=== PATIENT | female | born 1950 | race Hispanic/Latino ===

== ENCOUNTER 2017-08-28 07:11 | Day surgery (SDC) | payer BC ==
[2017-08-28] MEDS ORDERED: NA CHLORIDE 0.9% 500 ML ONE (07:33)
[2017-08-28] MEDS ORDERED: CYCLOPENTOLATE 1% OPTH 2 ML ONE (07:34)
[2017-08-28] MEDS ORDERED: BUPIVACAINE 0.25% PF 10 ML VIAL ONE (07:34)
[2017-08-28] MEDS ORDERED: TETRACAINE HCL 0.5% 2ML OPTH ONE (07:34)
[2017-08-28] MEDS ORDERED: LIDOCAINE 2% MPF 5 ML VIAL ONE (07:34)
[2017-08-28] MEDS ORDERED: PHENYLEPHRINE 10% OPTH 5ML ONE (07:35)
[2017-08-28] MEDS ORDERED: LIDOCAINE HCL/PF 3.5% OPTH GEL ONE (07:36)
[2017-08-28] MEDS ORDERED: CYCLOPENTOLATE 1% OPTH 2 ML OPTH ONE ×2 (08:03→08:10)
[2017-08-28] MEDS ORDERED: PHENYLEPHRINE 10% OPTH 5ML OPTH ONE (08:03)
[2017-08-28] MEDS ORDERED: BALANCED SALT IRRIG PLAIN 500 ML BTL IRR ONE (08:14)
[2017-08-28] MEDS ORDERED: EPINEPHRINE/PF 1 MG/ML AMP ONE ×2 (08:14→09:34)
[2017-08-28] MEDS ORDERED: NS 0.9% VIAL 10 ML ONE (08:14)
[2017-08-28] MEDS ORDERED: DUOVISC 1 KIT OPTH ONE (08:14)
[2017-08-28] MEDS ORDERED: LIDOCAINE 1% MPF 2 ML AMPULE ONE (08:15)
[2017-08-28] MEDS ORDERED: MOXIFLOXACIN HCL 10 DROPS/ML **OR USE OPTH ONE (08:15)
[2017-08-28] MEDS ORDERED: BSS OPTHALMIC SOL 15 ML BOT OPTH ONE (08:15)
[2017-08-28] MEDS ORDERED: MIDAZOLAM HCL 2 MG/2 ML INJ ONE (08:45)
[2017-08-28] MEDS ORDERED: FENTANYL CITR 100 MCG/2 ML ONE (08:45)
--- NOTE | 2017-08-28 10:53 | P.BOP ---
Preoperative diagnosis: Nuclear sclerotic and posterior subcapsular cataract OS Postoperative diagnosis: Same Primary procedure: Phacoemulsification with IOL OS Estimated blood loss: None Anesthesia: Local (Topical with anesthesia for cataract surgery) Complications: None Implants: SN60WF +19.0 Transferred to: Other (Day surgery) Condition: Good
--- NOTE | 2017-08-28 21:43 | OP ---
Date of Procedure: 08/28/2017 Surgeon: Renay Singh MD Anesthesiologist: 1. Lauren Restrepo CRNA. 2. Chauncey Piedra CRNA. 3. Douglas Langston M.D. Preoperative Diagnosis: Nuclear sclerotic and posterior subcapsular cataract, OS (left eye). Operation Performed: Phacoemulsification with intraocular lens implant, OS, (left eye). Anesthesia: Per cataract surgery. Complications: None. Description Of Procedure: In the operating room the patient was prepped and draped in the usual ster ile fashion for ophthalmic surgery. A lid speculum was placed in the OS. Two paracentesis sites wer e made superiorly and inferiorly in the limbal cornea. Viscoat was placed in the anterior chamber an d a crescent blade was used to make a corneal groove and tunnel, and a keratome was used to enter the anterior chamber. Provisc was placed in the anterior chamber and a 360 degree capsulotomy was perfo rmed with a cystitome. The lens was hydrodissected with BSS and rotated freely. The lens was remove d with a stop and chop technique. A 6.09 phaco CDE was used to remove the lens. Residual cortex was removed with the irrigation and aspiration. Provisc was placed in the capsular bag. SN60WF +19.0 l ens was placed in the capsular bag without complications. Irrigation and aspiration was used to marck ve residual viscoelastic. The paracentesis sites were hydrated with BSS. The wound and paracentesis sites were inspected and found to be watertight. Vigamox 0.07 cc was placed intracamerally at the e nd of the procedure. The eye was irrigated with balanced salt solution. The eye was patched with a soft cotton patch and Alatorre metal shield. The patient was returned to day surgery in good condition. Comments: Akten was placed in the eye in the Day Surgery and irrigated out of the eye with BSS in th e OR. Preservative-free 1% lidocaine was placed in the anterior chamber. This was followed by 1:500 0 epinephrine. Both were placed prior to Viscoat. Residual PSC remained at the end of the procedure . Discharge Instructions: Ms. Reina is discharged to home in good condition and is to follow up nomi Singh in the morning. EROS/KELTON Voice ID: [id number] Report ID: [id number]
== END 2017-08-28 10:30 | disposition home or self-care (01) ==
LOC: OR 07:11
PROVIDERS: ATTEND Ophthalmology Retina Specialist
PROC: 08RK3JZ Replacement of Left Lens with Synthetic Substitute, Percutaneous Approach (ICD-10-PCS; principal; 2017-08-28 09:10)
DX: H25.12 Age-related nuclear cataract, left eye (principal); H25.042 Posterior subcapsular polar age-related cataract, left eye; H43.813 Vitreous degeneration, bilateral; H04.123 Dry eye syndrome of bilateral lacrimal glands; I10 Essential (primary) hypertension; E78.00 Pure hypercholesterolemia, unspecified; K21.9 Gastro-esophageal reflux disease without esophagitis; Z85.72 Personal history of non-Hodgkin lymphomas; Z83.518 Family history of other specified eye disorder; Z83.3 Family history of diabetes mellitus; Z80.9 Family history of malignant neoplasm, unspecified; Z82.49 Family history of ischemic heart disease and other diseases of the circulatory system
CPT/HCPCS: J0171; J2001; J2250; J3010; V2630

== ENCOUNTER 2019-05-27 20:45 | Emergency (ER) | payer BC ==
--- OUTSIDE RECORDS SUMMARY | 2019-05-27 20:48 | XMS REPORT ---
:1950 [facility] Address [address] [place] [address] Dr. Kenny. [address] [place] [id number] Care Team Providers Name Role Phone Unavailable Unavailable Unavailable Problems This patient has no known problems. Allergies, Adverse Reactions, Alerts This patient has no known allergies or adverse reactions. Medications This patient has no known medications.
--- OUTSIDE RECORDS SUMMARY | 2019-05-27 20:48 | XMS REPORT ---
:1950 Author Organization eClinicalWorks Care Team Providers Name Role Phone SwartzEleuterio Provider Role Unavailable Allergies, Adverse Reactions, Alerts Substance Reaction Event Type N.K.D.A. 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, esophageal dysfunction, sclerodactyly, telangiectasia) Assessment Pain, joint, knee, right M25.561 Active Problem Elevated blood pressure reading in I10 Active office with diagnosis of hypertension Problem Decreased hearing of left ear H91.92 Active Problem Leukopenia, unspecified type D72.819 Active Problem 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 Problem Osteoarthritis of both knees, M17.0 Active unspecified osteoarthritis type Problem 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 Active Problem Follicular lymphoma, unspecified C82.90 Active body region, unspecified follicular lymphoma type Problem 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 Problem HTN (hypertension) I10 Active Problem 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 Active Problem Dyspareunia in female N94.10 Active Problem CKD (chronic kidney disease), stage N18.3 Active III Problem Solitary pulmonary nodule R91.1 Active Problem Screening for osteoporosis Z13.820 Active Problem Gastroesophageal reflux disease K21.9 Active without esophagitis Problem 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 Problem Unsteady gait R26.81 Active Problem Renal insufficiency N28.9 Active Problem Hyperlipidemia E78.5 Active Problem Left foot pain M79.672 Active Medications Medication Code Code Instructions Start End Status Dosage System Date Date [place] 3 [place] 40519074614 340 MG Orally Active 1 capsule Once a day Vitamin E ND 65058260060 400 UNIT Active 1 capsule Orally Once a day Omeprazole [facility] 82318437381 40 MG Orally Active 1 capsule Once a day Rosuvastatin Calcium [facility] 42599416720 10 MG Orally Active 1 tablet Once a day Azelastine HCl [facility] [address]-31 Active not defined Diclofenac Sodium [facility] 36117952537 3 % May Active 2 gram Transdermal 10, application Twice a day 2019 to affected area Vitamin D [facility] 77176122017 2000 UNIT Active 1 tablet Orally Once a day Yuvafem [facility] [address]-27 Active not defined Carvedilol [facility] 88877779395 25 MG Orally Active 1 tablet twice a day Fluticasone [facility] [address]-98 Active not defined Propionate Nitrofurantoin [facility] [address]-82 Active not defined Monohyd Macro ProAir HFA [facility] 70603121040 108 (90 Base) Active 2 puffs as MCG/ACT needed Inhalation every 6 hrs Tizanidine HCl [facility] 54974154366 2 mg Orally at Active 1 tablet as bedtime needed Neurontin [facility] 35802442499 300 MG Orally Active 1 capsule Once a day before bedtime Fish Oil [facility] 14812832542 1200 MG Orally Active 1 capsule Once a day MethylPREDNISolone [facility] [address]-74 Active not defined Shingrix [facility] [address]-09 Active not defined Valtrex [facility] 38158827399 500 MG Orally Active 1 tablet Once a day Cozaar [facility] 55920621831 50 MG Active 1 EACH ONCE A DAY ORALLY Vitamin A [facility] 05489446345 8000 UNIT Active 3 capsules Orally Once a day Results No Known Results Summary Purpose eClinicalWorks Submission
--- OUTSIDE RECORDS SUMMARY | 2019-05-27 20:48 | XMS REPORT ---
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
--- OUTSIDE RECORDS SUMMARY | 2019-05-27 20:48 | XMS REPORT ---
[...] Active phenomenon, esophageal dysfunction, sclerodactyly, telangiectasia) Medications Medication Code Code Instructions Start End Date Status Dosage System Date Losartan [facility] 82836373129 50 MG Orally Active 1 tablet Potassium Once a day Results No Known Results Summary Purpose eClinicalWorks Submission
[2019-05-27] MEDS ORDERED: METHOCARBAMOL 1,000 MG/10 ML VIAL IV ONE ×2 (22:27→22:31)
[2019-05-27] MEDS ORDERED: dexAMETHasone 10 MG/ML VIAL ONE (22:27)
[2019-05-27] MEDS ORDERED: KETOROLAC 30 MG/ML INJ ONE (22:28)
[2019-05-27] MEDS ORDERED: NA CHLORIDE 0.9% 100 ML IV ONE (22:28)
[2019-05-27 22:45] LABS: Absolute Lymphocytes (CBC) 1.3 K/uL (0.7-4.9); Hematocrit 36.3 % (36.0-45.0); Lymphocytes % 28.1 % (15.3-44.8); MPV 8.4 fL (7.6-11.3); RBC Red Blood Cell Count 3.91 M/uL (3.86-4.86)
[2019-05-27 23:12] LABS: Urine Blood NEGATIVE (NEG); Urine Glucose NEGATIVE (NEG); Urine Protein NEGATIVE (NEG)
--- NOTE | 2019-05-28 00:14 | EDPHYS ---
Physician Documentation [facility] Name: Hattie Reina Age: 69 yrs Sex: Female : 1950 Arrival Date: 05/27/2019 Time: 20:50 Bed 20 Private MD: ED Physician Silvana Hoover HPI: 05/27 21:28 This 69 yrs old Female presents to ER via Ambulatory with complaints of Pain jr8 On Left Side. 21:28 Patient stated that she has been having lower back pain that is not going away despite jr8 recent pain injections and physical therapy. Stated that she has had MRI on back but does not have results as of yet. Came to ED tonight because the pain is spreading up her flank on both sides now. Severity of symptoms: At their worst the symptoms were moderate in the emergency department the symptoms are unchanged. The patient has not experienced similar symptoms in the past. The patient has been recently seen by a physician:. Historical: - Allergies: 21:16 No Known Allergies; wh - PMHx: 21:16 Hyperlipidemia; Hypertension; LYMPHOMA; shingles; wh - PSHx: 21:16 Tubal ligation; Carpal tunnel; wh - Immunization history:: Adult Immunizations up to date. - Social history:: Smoking status: Patient/guardian denies using tobacco. - Ebola Screening: : Patient negative for fever greater than or equal to 101.5 degrees Fahrenheit, and additional compatible Ebola Virus Disease symptoms Patient denies exposure to infectious person. ROS: 21:28 Eyes: Negative for injury, pain, redness, and discharge, ENT: Negative for injury, jr8 pain, and discharge, Neck: Negative for injury, pain, and swelling, Cardiovascular: Negative for chest pain, palpitations, and edema, Respiratory: Negative for shortness of breath, cough, wheezing, and pleuritic chest pain, Abdomen/GI: Negative for abdominal pain, nausea, vomiting, diarrhea, and constipation, MS/Extremity: Negative for injury and deformity, Skin: Negative for injury, rash, and discoloration, Neuro: Negative for headache, weakness, numbness, tingling, and seizure. 21:28 Back: Positive for pain at rest, pain with movement, of the low back area, left flank and right flank. Exam: 21:28 Eyes: Pupils equal round and reactive to light, extra-ocular motions intact. Lids and jr8 lashes normal. Conjunctiva and sclera are non-icteric and not injected. Cornea within normal limits. Periorbital areas with no swelling, redness, or edema. ENT: Nares patent. No nasal discharge, no septal abnormalities noted. Tympanic membranes are normal and external auditory canals are clear. Oropharynx with no redness, swelling, or masses, exudates, or evidence of obstruction, uvula midline. Mucous membranes moist. Neck: Trachea midline, no thyromegaly or masses palpated, and no cervical lymphadenopathy. Supple, full range of motion without nuchal rigidity, or vertebral point tenderness. No Meningismus. Cardiovascular: Regular rate and rhythm with a normal S1 and S2. No gallops, murmurs, or rubs. Normal PMI, no JVD. No pulse deficits. Respiratory: Lungs have equal breath sounds bilaterally, clear to auscultation and percussion. No rales, rhonchi or wheezes noted. No increased work of breathing, no retractions or nasal flaring. Abdomen/GI: Soft, non-tender, with normal bowel sounds. No distension or tympany. No guarding or rebound. No evidence of tenderness throughout. Skin: Warm, dry with normal turgor. Normal color with no rashes, no lesions, and no evidence of cellulitis. MS/ Extremity: Pulses equal, no cyanosis. Neurovascular intact. Full, normal range of motion. Neuro: Awake and alert, GCS 15, oriented to person, place, time, and situation. Cranial nerves II-XII grossly intact. Motor strength 5/5 in all extremities. Sensory grossly intact. Cerebellar exam normal. Normal gait. 21:28 Back: pain, that is mild, of the left low back and right low back, ROM is normal, normal spinal alignment noted, CVA tenderness, is absent, vertebral tenderness, is not appreciated, muscle spasm, is not present. Vital Signs: 21:15 BP 145 / 77; Pulse 66; Resp 18; Temp 97.8; Pulse Ox 99% ; Weight 86.18 kg; Height 5 ft. wh 4 in. (162.56 cm); Pain 4/10; 22:42 BP 149 / 68; Pulse 63; Resp 18; Pulse Ox 99% on R/A; wh 23:48 BP 136 / 53; Pulse 63; Resp 18; Pulse Ox 97% on R/A; 21:15 Body Mass Index 32.61 (86.18 kg, 162.56 cm) MDM: 21:27 Patient medically screened. [facility] 05/28 00:10 Data reviewed: vital signs, nurses notes, lab test result(s), radiologic studies, CT [facility] scan. Data interpreted: Pulse oximetry: on room air is 97 %. Interpretation: normal. Counseling: I had a detailed discussion with the patient and/or guardian regarding: the historical points, exam findings, and any diagnostic results supporting the discharge/admit diagnosis, lab results, radiology results, the need for outpatient follow up, an OB/Gyne specialist, a orthopedic surgeon, to return to the emergency department if symptoms worsen or persist or if there are any questions or concerns that arise at home. ED course: Patient is feeling better. CT without surgically emergent findings. Does show possibility of thrombus in left ovarian vein. Patient is without any abdominal pain or tenderness. I think this is subsequent finding at this time but I brought it to patients attention and that she needs to f/u with her picture painter regardless. Otherwise will treat her a musculoskeletal pain at this time. Patient is good with this and will follow up. 05/27 21:28 Order name: CBC with Diff; Complete Time: 22:51 [facility] 05/27 21:28 Order name: Basic Metabolic Panel; Complete Time: 22:51 [facility] 05/27 21:28 Order name: CT Abd/Pelvis - IV Contrast Only [facility] 05/27 22:28 Order name: Urine Dipstick--Ancillary (enter results); Complete Time: 23:24 [facility] 05/27 21:28 Order name: Urine Dipstick-Ancillary (obtain specimen); Complete Time: 22:30 [facility] Administered Medications: 05/27 22:33 Drug: TORadol - Ketorolac 15 mg Route: IVP; Site: left upper arm; 05/28 00:36 Follow up: Response: No adverse reaction; Pain is decreased 05/27 22:35 Drug: Decadron - Dexamethasone 10 mg Route: IVP; Site: left upper arm; 05/28 00:36 Follow up: Response: No adverse reaction 05/27 22:41 Drug: Robaxin 1 grams Route: IVPB; Infused Over: 1 hrs; Site: left upper arm; 05/28 00:36 Follow up: Response: No adverse reaction; IV Status: Completed infusion Disposition: 04:32 Co-signature as Attending Physician, Silvana Hoover MD. ma2 Disposition: 05/28/19 00:13 Discharged to Home. Impression: Low back pain, Muscle spasm of back. - Condition is Stable. - Discharge Instructions: Back Pain, Adult, Musculoskeletal Pain, Back Exercises, Rhxx-bs-Kyci, Heat Therapy. - Prescriptions for meloxicam 15 mg Oral tablet - take 1 tablet by ORAL route once daily As needed; 20 tablet. Zanaflex 4 mg Oral Tablet - take 1 tablet by ORAL route every 8 hours As needed; 20 tablet. Medrol (Scott) 4 mg Oral Tablets, Dose Pack - take 1 tablet by ORAL route as directed - follow package instructions; 1 packet. - Medication Reconciliation Form, Thank You Letter, Antibiotic Education, Prescription Opioid Use form. - Follow up: Private Physician; When: 5 - 6 days; Reason: Recheck today's complaints, Continuance of care, Re-evaluation by your physician. - Problem is new. - Symptoms have improved. Signatures: Dispatcher [employer] EDMS Kelby Smith PA PA jr8 Barbara Cruz Sneha, MD FARIDEH Pina ma2 Corrections: (The following items were deleted from the chart) 00:36 00:13 05/28/2019 00:13 Discharged to Home. Impression: Low back pain; Muscle spasm of wh back. Condition is Stable. Forms are Medication Reconciliation Form, Thank You Letter, Antibiotic Education, Prescription Opioid Use. Follow up: Private Physician; When: 5 - 6 days; Reason: Recheck today's complaints, Continuance of care, Re-evaluation by your physician. Problem is new. Symptoms have improved. jr8
--- NOTE | 2019-05-28 00:14 | ER ---
Nurse's Notes [facility] Name: Hattie Reina Age: 69 yrs Sex: Female : 1950 Arrival Date: 05/27/2019 Time: 20:50 Bed 20 Private MD: Diagnosis: Low back pain;Muscle spasm of back Presentation: 05/27 21:14 Presenting complaint: Patient states: C/O lower back pain that started for a couple of wh months ago now getting worse and goes to her left leg. Transition of care: patient was not received from another setting of care. Onset of symptoms was May 27, 2019. Risk Assessment: Do you want to hurt yourself or someone else? Patient reports no desire to harm self or others. Initial Sepsis Screen: Does the patient meet any 2 criteria? No. Patient's initial sepsis screen is negative. Does the patient have a suspected source of infection? No. Patient's initial sepsis screen is negative. Care prior to arrival: None. 21:14 Method Of Arrival: Ambulatory 21:35 Acuity: TAE 3 bb Triage Assessment: 21:17 General: Appears. Historical: - Allergies: 21:16 No Known Allergies; - PMHx: 21:16 Hyperlipidemia; Hypertension; LYMPHOMA; shingles; - PSHx: 21:16 Tubal ligation; Carpal tunnel; - Immunization history:: Adult Immunizations up to date. - Social history:: Smoking status: Patient/guardian denies using tobacco. - Ebola Screening: : Patient negative for fever greater than or equal to 101.5 degrees Fahrenheit, and additional compatible Ebola Virus Disease symptoms Patient denies exposure to infectious person. Screenin:16 Abuse screen: Denies threats or abuse. Denies injuries from another. Nutritional screening: No deficits noted. Tuberculosis screening: No symptoms or risk factors identified. Fall Risk None identified. Assessment: 21:15 General: Appears in no apparent distress. Behavior is calm, cooperative, appropriate for age. Pain: Complains of pain in low back area Pain radiates to left leg Pain currently is 4 out of 10 on a pain scale. Quality of pain is described as sharp, Pain began couple of months Is intermittent. Neuro: Level of Consciousness is awake, alert, obeys commands. Cardiovascular: Heart tones S1 S2. Respiratory: Airway is patent Respiratory effort is even, unlabored, Respiratory pattern is regular, symmetrical, Breath sounds are clear bilaterally. GI: Abdomen is flat, non-distended. : No signs and/or symptoms were reported regarding the genitourinary system. EENT: No signs and/or symptoms were reported regarding the EENT system. Derm: Skin is intact, is healthy with good turgor, Skin is pink, warm \T\ dry. normal. Musculoskeletal: Circulation, motion, and sensation intact. 22:17 Reassessment: Patient appears in no apparent distress at this time. No changes from previously documented assessment. Patient and/or family updated on plan of care and expected duration. Pain level reassessed. Patient is alert, oriented x 3, equal unlabored respirations, skin warm/dry/pink. CN at bedside attempting IV access via LUCHO. 23:48 Reassessment: Patient appears in no apparent distress at this time. No changes from previously documented assessment. Patient and/or family updated on plan of care and expected duration. Pain level reassessed. Patient is alert, oriented x 3, equal unlabored respirations, skin warm/dry/pink. Vital Signs: 21:15 BP 145 / 77; Pulse 66; Resp 18; Temp 97.8; Pulse Ox 99% ; Weight 86.18 kg; Height 5 ft. 4 in. (162.56 cm); Pain 4/10; 22:42 BP 149 / 68; Pulse 63; Resp 18; Pulse Ox 99% on R/A; wh 23:48 BP 136 / 53; Pulse 63; Resp 18; Pulse Ox 97% on R/A; wh 21:15 Body Mass Index 32.61 (86.18 kg, 162.56 cm) ED Course: 20:50 Patient arrived in ED. cl3 20:52 Barbara Cruz is Primary Nurse. wh 20:54 Kelby Smith PA is PHCP. jr8 20:54 Silvana Hoover MD is Attending Physician. jr8 21:15 Triage completed. 21:15 Arm band placed on right wrist. 21:17 Patient has correct armband on for positive identification. Bed in low position. Call light in reach. Side rails up X 1. Pulse ox on. NIBP on. 22:00 Missed attempt(s): 22 gauge in right antecubital area. Bleeding controlled, band aid wh applied, catheter tip intact. 22:28 Initial lab(s) drawn, by me, sent to lab. Accessed peripheral vein via ultrasound, bb utilizing dynamic ultrasound technique using per hospital protocol. 18 [employer] [place] Pro 10 cm. 23:28 CT Abd/Pelvis - IV Contrast Only In Process Unspecified. EDMS 05/28 00:35 No provider procedures requiring assistance completed. IV discontinued, intact, bleeding controlled, No redness/swelling at site. Administered Medications: 05/27 22:33 Drug: TORadol - Ketorolac 15 mg Route: IVP; Site: left upper arm; 05/28 00:36 Follow up: Response: No adverse reaction; Pain is decreased 05/27 22:35 Drug: Decadron - Dexamethasone 10 mg Route: IVP; Site: left upper arm; 05/28 00:36 Follow up: Response: No adverse reaction 05/27 22:41 Drug: Robaxin 1 grams Route: IVPB; Infused Over: 1 hrs; Site: left upper arm; 05/28 00:36 Follow up: Response: No adverse reaction; IV Status: Completed infusion Outcome: 00:13 Discharge ordered by MD. jj 00:35 Discharged to home ambulatory, with family. 00:35 Condition: stable 00:35 Discharge instructions given to patient, family, Instructed on discharge instructions, follow up and referral plans. medication usage, POC Demonstrated understanding of instructions, follow-up care, medications, POC Prescriptions given X 3. 00:36 Patient left the ED. Signatures: Dispatcher [employer] EDVA Faby Parker RN RN Kelby Flanagan PA PA jr8 Barbara Cruz Naveen Moreno cl3 Corrections: (The following items were deleted from the chart) 05/27 21:35 21:14 Acuity: TAE 4 honey
[2019-05-28 01:11] VITALS: TEMP 97.8
[2019-05-28 01:14] VITALS: BP 136/53; O2SAT 97
--- NOTE | 2019-05-28 09:52 | RAD REPORT ---
EXAM DESCRIPTION: CT - Abdomen Pelvis W Contrast - 05/28/2019 6:03 am CLINICAL HISTORY: Lower back pain. COMPARISON: None. TECHNIQUE: CT scan of the abdomen and pelvis was performed with IV contrast. This exam was performed according to our departmental dose-optimization program, which includes automated exposure control, adjustment of the mA and/or kV according to patient size and/or use of iterative reconstruction techn ique. FINDINGS: The lung bases are clear. No pleural or pericardial effusions. The gallbladder is contract ed, limiting evaluation. The liver, spleen, pancreas, adrenal glands, kidneys, and pelvic organs are grossly unremarkable. No hydronephrosis or urinary stones are seen. There is a thrombosed vessel with inflammatory stranding which appears to extend to the left renal vein, suggestive of ovarian vein th rombosis. No small bowel obstruction. The appendix is normal. No evidence of acute diverticulitis. No adenopath y, free fluid, or free air is identified. The aorta is normal caliber and contains atherosclerotic ca lcifications. No acute bony findings. 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 Electronically signed by: Luis Alfredo Hahn MD 05/27/2019 11:47 PM PHLEBOTOMY MANAGER Due to temporary technical issues with the PACS/Fluency reporting system, reports are being signed by the in house radiologist as a courtesy to ensure prompt reporting. The interpreting radiologist is f ully responsible for the content of the report.
== END 2019-05-28 00:36 | disposition home or self-care (01) ==
LOC: ER 20:45
DX: M62.830 Muscle spasm of back (principal); I10 Essential (primary) hypertension
CPT/HCPCS: 96365; 85025; 80048; 36415; 81003; 74177; 96375; 99284; 96366; Q9967; J1100; J2800

== ENCOUNTER 2019-07-03 06:52 | Day surgery (SDC) | payer BC ==
--- OUTSIDE RECORDS SUMMARY | 2019-07-03 06:54 | XMS REPORT ---
[...] Start End Status Dosage System Date Date [place] 3 [place] 24142488401 340 MG Orally Active 1 capsule Once a day Vitamin E ND 14686686761 400 UNIT Active 1 capsule Orally Once a day Omeprazole [facility] 26229176524 40 MG Orally Active 1 capsule Once a day Rosuvastatin Calcium [facility] 13295964077 10 MG Orally Active 1 tablet Once a day Azelastine HCl [facility] [address]-16 Active not defined Diclofenac Sodium [facility] 47145773748 3 % May Active 2 gram Transdermal 10, application Twice a day 2019 to affected area Vitamin D [facility] 73320664735 2000 UNIT Active 1 tablet Orally Once a day Yuvafem [facility] [address]-44 Active not defined Carvedilol [facility] 33693428039 25 MG Orally Active 1 tablet twice a day Fluticasone [facility] [address]-77 Active not defined Propionate Nitrofurantoin [facility] [address]-41 Active not defined Monohyd Macro ProAir HFA [facility] 86497401295 108 (90 Base) Active 2 puffs as MCG/ACT needed Inhalation every 6 hrs Tizanidine HCl [facility] 08582351120 2 mg Orally at Active 1 tablet as bedtime needed Neurontin [facility] 65807332910 300 MG Orally Active 1 capsule Once a day before bedtime Fish Oil [facility] 09304706791 1200 MG Orally Active 1 capsule Once a day MethylPREDNISolone [facility] [address]-46 Active not defined Shingrix [facility] [address]-19 Active not defined Valtrex [facility] 91104762835 500 MG Orally Active 1 tablet Once a day Cozaar [facility] 73258474994 50 MG Active 1 EACH ONCE A DAY ORALLY Vitamin A [facility] 45858760147 8000 UNIT Active 3 capsules Orally Once a day Results No Known Results Summary Purpose eClinicalWorks Submission
--- OUTSIDE RECORDS SUMMARY | 2019-07-03 06:54 | XMS REPORT ---
:1950 [facility] Address [address] [place] [address] Dr. Kenny. [address] [place] [id number] Care Team Providers Name Role Phone Unavailable Unavailable Unavailable Problems This patient has no known problems. Allergies, Adverse Reactions, Alerts This patient has no known allergies or adverse reactions. Medications This patient has no known medications.
--- OUTSIDE RECORDS SUMMARY | 2019-07-03 06:54 | XMS REPORT ---
[...] End Date Status Dosage System Date Losartan [facility] [place] 24153552227 50 MG Orally Active 1 tablet Potassium Once a day Results No Known Results Summary Purpose eClinicalWorks Submission
[2019-07-03] MEDS ORDERED: Ringers Lactate 1,000 ML IV ONE (07:32)
[2019-07-03] MEDS ORDERED: FENTANYL CITR 100 MCG/2 ML ONE (08:14)
[2019-07-03] MEDS ORDERED: LIDOCAINE 2% MPF 5 ML VIAL ONE (08:15)
[2019-07-03] MEDS ORDERED: propofoL 200 MG/20 ML VIAL IV ONE (08:15)
[2019-07-03] MEDS ORDERED: MIDAZOLAM HCL 2 MG/2 ML INJ ONE (08:15)
[2019-07-03] MEDS ORDERED: NA CHLORIDE 0.9% 1,000 ML ONE (09:05)
[2019-07-03] MEDS: LIDOCAINE 1% W/EPI 1:100,000 MDV 20 ML VIAL ONE ×2 (09:20→09:37)
[2019-07-03] MEDS ORDERED: KETOROLAC 30 MG/ML INJ ONE (09:51)
[2019-07-03 10:14] VITALS: TEMP 97
[2019-07-03 10:15] VITALS: BP 117/58; O2SAT 97
--- NOTE | 2019-07-03 20:43 | OP ---
Date of Procedure: 07/03/2019 Surgeon: Claudia Haley MD Construction Analyst: None. Preoperative Diagnoses: Endometrial hyperplasia and thickened endometrium. Postoperative Diagnoses: Endometrial hyperplasia and thickened endometrium. Procedure Performed: Hysteroscopy, D and C. Estimated Blood Loss: Minimal. Anesthesia: MAC plus paracervical block. Specimens: Endometrial curettings. Complications: No complications. Drains: No drains. Condition: Stable. Indications For Procedure: The patient is a 69-year-old lady with thick pelvic pain. Transvaginal u ltrasound performed. Endometrium appeared to be thickened. Discussed about possibility of endometri al hyperplasia or polyp, so cavity visualization and sampling was recommended. She was consented and brought to the OR. Description Of Procedure: After informed consent was verified, she was taken back to OR, placed in a supine fashion. General anesthesia given, placed in a dorsal lithotomy position. Abdomen, vulva, v agina and perineum prepped and draped in a sterile fashion. Speculum placed to expose the cervix, in jected with 1% lidocaine mixed with 1:100,000 epinephrine 8 cc at 12 o'clock and 4 and 8 o'clock posi tions of the cervicovaginal junction. Diagnostic SlimLine hysteroscope was used to enter the cervica l canal and traversed under direct visualization to get into the uterine cavity. Thickened endometri um in the anterior and lateral wall that mostly unremarkable, no irregular surface. Scope removed. Endometrial curettings performed and they were scant, but sent out for permanent pathology. Instrume nts removed. Instrument, needle and sponge counts were done and were correct at the end of the case. The patient tolerated the procedure well. She was recovered from anesthesia in the OR and taken to PACU in stable condition. She will follow up with me in 1 week. JOANNA/KELTON Voice ID: [id number] Report ID: [id number]
== END 2019-07-03 10:48 | disposition home or self-care (01) ==
LOC: OR 06:52
PROVIDERS: ATTEND Obstetrics & Gynecology
PROC: 0UJD8ZZ Inspection of Uterus and Cervix, Via Natural or Artificial Opening Endoscopic (ICD-10-PCS; 2019-07-03)
PROC: 0UDB7ZX Extraction of Endometrium, Via Natural or Artificial Opening, Diagnostic (ICD-10-PCS; principal; 2019-07-03 08:30)
DX: N85.00 Endometrial hyperplasia, unspecified (principal); N94.11 Superficial (introital) dyspareunia; R93.89 Abnormal findings on diagnostic imaging of other specified body structures; R10.32 Left lower quadrant pain; M54.5 Low back pain; I10 Essential (primary) hypertension; E78.5 Hyperlipidemia, unspecified; Z85.72 Personal history of non-Hodgkin lymphomas; Z86.718 Personal history of other venous thrombosis and embolism; Z80.3 Family history of malignant neoplasm of breast; Z83.3 Family history of diabetes mellitus
CPT/HCPCS: 88305; 58558; J2704; J2250; J3010; J7120; J7030

== ENCOUNTER 2020-01-14 06:05 | Day surgery (SDC) | payer BC ==
[2020-01-13 10:27] LABS: Urine Appearance CLEAR; Urine Bilirubin NEGATIVE (NEG); Urine Blood NEGATIVE (NEG); Urine Color YELLOW; Urine Glucose NEGATIVE (NEG); Urine Protein NEGATIVE (NEG); Urine Urobilinogen 0.2 mg/dL (0.2-1.0); Urine pH 5.5 (5.0-7.0)
[2020-01-13 10:46] LABS: Urine Microscopic Reflex ORDER UMIC
[2020-01-13 10:49] LABS: Urine Bacteria <20 /HPF (<20); Urine Culture Reflex Order NOT NEEDED; Urine RBC NONE SEEN /HPF (NONE SEEN)
[2020-01-13 10:50] LABS: Urine Mucus MOD /HPF (NONE SEEN)
[2020-01-13 11:50] LABS: Basophils % 0.9 % (0-1.3); Hematocrit 36.3 % (36.0-45.0); Lymphocytes % 20.6 % (15.3-44.8); MPV 8.6 fL (7.6-11.3); RBC Red Blood Cell Count 3.88 M/uL (3.86-4.86)
--- OUTSIDE RECORDS SUMMARY | 2020-01-14 06:13 | XMS REPORT | Continuity of Care Document ---
:1950 Author Organization [facility] Care Team Providers Name Role Phone [employer] Unavailable Un available Problems Problem Status Onset Classification Date Comments Sourc e Date Reported Chest pain Resolved Problem 01/04/2020 [facility] (finding) Neuro Hyperlipidemia Active Problem 01/04/2020 [facility] (disorder) Neuro Hypertensive Active Problem 01/04/2020 [facility] disorder, Neuro systemic arterial (disorder) Lumbar Active Problem 01/04/2020 [facility] radiculopathy Neuro (disorder) Postherpetic Active Problem 01/04/2020 [facility] neuralgia Neuro (disorder) Simple obesity Active Problem 01/04/2020 [facility] (disorder) Neuro Anti-nuclear Active Problem 01/04/2020 [facility] factor positive Neur o (finding) 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 Neuro (disorder) Abnormal Active Diagnosis 10/02/[facility] [place] finding in serum, unspecified Essential Active Problem 10/02/2019 [facility] [place] hypertension 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 Renal Active Diagnosis 10/02/2019 [facility] insufficiency [facility] [place] Osteoarthritis Active Diagnosis 10/02/2019 [facility] [place] Systemic Active Problem 10/02/2019 [facility] involvement of [facility] connective tissue, unspecified Other specified Active Problem 10/02/2019 [facility] disorders [facility] [place] involving the immune mechanism Abnormal finding Active Problem 10/02/2019 [facility] of blood [facility] [place] chemistry, unspecified Lumbar Active Diagnosis 10/02/2019 [facility] radiculopathy [facility] [place] Medications Medication Details Route Status Patient Ordering Order Source Instructions Provider Date gabapentin 300 300 mg = 1 Active [facility] r MG Oral Capsule cap, PO, 020 Neuro Bedtime, # 90 cap, 2 Refill(s), Pharmacy: [id number], 162.56, cm, 01/01/20 15:18:00 CDT, Height, 82.273, kg, 01/01/20 15:18:00 CDT, Weight gabapentin 300 300 mg = 1 Active [facility] r MG Oral Capsule cap, PO, 018 Neuro Bedtime, # 90 cap, 2 Refill(s), Pharmacy: [facility] [id number] Omeprazole 40 mg, PO, Active [facility] Daily, 0 018 Neuro Refill(s) rosuvastatin 10 mg, PO, Active [facility] Daily, 0 018 Neuro Refill(s) Losartan 50 mg, PO, Active [facility] Daily, 0 018 Neuro Refill(s) valacyclovir 500 mg, PO, Active [facility] Daily, # 21 018 Neuro tab, 0 Refill(s) carvedilol 25 mg, PO, Active [facility] Daily, 0 018 Neuro Refill(s) Gabapentin 1 capsule Orally Active 300 MG Orally [facility] Once a day [facility] [place] Fluticasone 1 spray in Nasally Active 50 MCG/ACT [facility] Propionate each nostril Nasally Once a o f Rosuvastatin 1 tablet Orally Active 10 MG Orally [facility] Calcium Once a day of Valacyclovir 1 tablet Orally Active 500 MG Orally [facility] HCl Once a day [facility] [place] Vitamin D3 1 capsule Orally Active 2000 UNIT [facility] Orally Once a of day Vitamin C 1 tablet Orally Active 1000 MG Orally [facility] Once a day [facility] [place] Calcium not defined NA Active [facility] [place] Azelastine HCl 1 puff in Nasally Active 137 MCG/SPRAY Vo [facility] each nostril Nasally Twice of a day Carvedilol 2 tablets Orally Active 12.5 MG Orally [facility] twice a day [facility] [place] Losartan 1 tablet Orally Active 50 MG Orally [facility] Potassium Once a day [facility] [place] Yuvafem 1 tablet Vaginal Active 10 MCG Vaginal Vo [facility] r Two times a of Week Super B Complex not defined NA Active [facility] [place] Vitamin E 1 capsule Orally Active 400 UNIT [facility] Orally Once a of day Fish Oil not defined NA Active [facility] [place] Calcium not defined NA Active [facility] [place] Gabapentin 1 capsule Orally Active 300 MG Orally [facility] Once a day [facility] [place] Carvedilol 2 tablets Orally Active 12.5 MG Orally [facility] twice a day [facility] [place] Allergies, Adverse Reactions, Alerts Substance Category Reaction Severity Reaction Status Date Comments S ource type Reported N.K.D.A. Adverse Info Not Adverse [facility] m Reaction Available Reaction [facility] [place] No Known Assertion Drug Misch er Medication allergy Neuro Allergies Immunizations No Data Provided for This Section Results No Data Provided for This Section Pathology Reports No Data Provided for This Section Diagnostic Reports No Data Provided for This Section Consultation Notes No Data Provided for This Section Discharge Summaries No Data Provided for This Section History and Physicals No Data Provided for This Section Vital Signs Vital Sign Value Date Comments Source Systolic (mm Hg) 164 01/01/2020 [facility] Diastolic (mm Hg) 88 01/01/2020 [facility] Ne uro Heart Rate 68 01/01/2020 [facility] Neuro Respitory Rate 16 01/01/2020 [facility] Neuro Height 162.56 cm 01/01/2020 [facility] Neuro Weight 82.273 01/01/2020 [facility] BMI Calculated 31.13 01/01/2020 [facility] Neuro Systolic (mm Hg) 133 10/16/2019 [facility] Diastolic (mm Hg) 87 10/16/2019 [facility] Ne uro Heart Rate 75 10/16/2019 [facility] Neuro Respitory Rate 16 10/16/2019 [facility] Neuro Height 162.56 cm 10/16/2019 [facility] Neuro Weight 85.909 10/16/2019 [facility] Neuro BMI Calculated 32.51 10/16/2019 [facility] Neuro Systolic (mm Hg) 130 09/17/2019 [facility] Axel ro Diastolic (mm Hg) 78 09/17/2019 [facility] Ne uro Heart Rate 70 09/17/2019 [facility] Neuro Respitory Rate 16 09/17/2019 [facility] Neuro Height 162.56 cm 09/17/2019 [facility] Neuro Weight 86.818 09/17/2019 [facility] Neuro BMI Calculated 32.85 09/17/2019 [facility] Neuro Weight 191 01/29/2019 [facility] Height 64.0 01/29/2019 [facility] Heart Rate 67 01/29/2019 [facility] Diastolic (mm Hg) 84 01/29/2019 [facility] Systolic (mm Hg) 146 01/29/2019 [facility] [place] Systolic (mm Hg) 135 [facility] Di[facility] (mm Hg) 74 01/01/2019 [facility] Heart Rate 67 01/01/2019 [facility] Neuro Respitory Rate 16 01/01/2019 [facility] Neuro Height 162.56 cm 01/01/2019 [facility] Neuro Weight 87.727 01/01/2019 [facility] Neuro BMI Calculated 33.2 01/01/2019 [facility] Neuro Heart Rate 66 06/05/2018 [facility] Neuro Respitory Rate 16 06/05/2018 [facility] Neuro Systolic (mm Hg) 133 06/05/2018 [facility] Axel ro Diastolic (mm Hg) 84 06/05/2018 [facility] Ne uro Height 162.56 cm 06/05/2018 [facility] Neuro Weight 85.455 06/05/2018 [facility] Neuro BMI Calculated 32.34 06/05/2018 [facility] Neuro Height 165.1 cm 04/24/2018 [facility] Neuro BMI Calculated 31.35 04/24/2018 [facility] Neuro Weight 85.455 04/24/2018 [facility] Neuro Heart Rate 67 04/24/2018 [facility] Neuro Systolic (mm Hg) 161 04/24/2018 [facility] ro Diastolic (mm Hg) 73 04/24/2018 [facility] Ne uro Encounters Location Location Encounter Encounter Reason Attending ADM IN Stat us Source Details Type Number For Provider Date Date Visit Outpatient [id number] KAYLENE 04/24 [facility] Outpatient [id number] Kaylene 04/24 04/25 [facility] Neurology [facility] /2017 [facility] [place] MNA Outside [id number] 04/30 05/02 [facility] Neurology [facility] /2017 Neuro [place] Records Outpatient [id number] KAYLENE 06/05 Active [facility] [place] M[facility] Outpatient [id number] Kaylene 06/05 06/06 [facility] Neurology [facility] /2018 [facility] [place] Outpatient [id number] Kaylene 01/01 [facility] [place] MNA Outpatient [id number] Kaylene 01/01 01/02 [facility] Neurology [facility] /2018 Neuro [place] Outpatient [id number] Kaylene 09/16 Active [facility] MNA Outpatient [id number] Kaylene 09/16 09/17 [facility] Neurology [facility] /2019 Neuro [place] Outpatient [id number] Kaylene 10/07 [facility]2020 [facility] MNA Ambulatory [id number] Kaylene 10/07 10/07 [facility] /2019 [facility] [place] Outpatient [id number] Kaylene 10/15 [facility]2020 [facility] Outpatient [id number] Kaylene 10/15 10/16 [facility] /2019 [facility] [place] MNA Outside [id number] 11/04 11/06 [facility] /2019 [facility] [place] Records Outpatient [id number] Kaylene 11/26 [facility]2019 [facility] Outpatient [id number] Kaylene 11/26 [facility]2019 [facility] Ambulatory [id number] Kaylene 11/26 11/26 [facility] [place] /2019 [facility] [place] MNA Ambulatory [id number] Kaylene 11/26 11/26 [facility] [place] /2019 [facility] [place] Outpatient [id number] Kaylene 12/31 [facility]2019 [facility] Outpatient [id number] Kaylene 12/31 01/01 [facility] /2019 [facility] [place] Outpatient [id number] Kaylene 09/30 [facility] [place] Procedures Procedure Code Date Perfomer Comments Source Cataract surgery [id number] [facility] Neuro Assessment and Plan No Data Provided for This Section Plan of Care No Data Provided for This Section Social History Social History Date Source Social History TypeResponse 01/01/2020 [facility] Smoking Status Never smoker; Type: Cigarettes; Exposure to Tobacco Smoke None; Cigarette Smoking Last 365 Days No; Reg Smoking Cessation Counseling No entered on: 01/01/20 Family History No Data Provided for This Section Advance Directives No Data Provided for This Section Functional Status No Data Provided for This Section
--- OUTSIDE RECORDS SUMMARY | 2020-01-14 06:14 | XMS REPORT | Summary of Care ---
:1950 Author Organization [facility] [place] Address [address] [place] [address]- phone Encounter HQ Encntr_alias(FIN) [id number] Date(s): 11/27/19 - 11/27/19 [facility] [address] [place] [address]- [phone] Attending Physician: Brennan Kim MD Referring Physician: Brennan Kim MD Vital Signs No data available for this section Problem List Condition Effective Dates Status Health Status Informant Chest pain(Confirmed) Resolved Hyperlipidemia(Confirmed) Active Hypertension(Confirmed) Active Lumbar radiculopathy(Confirmed) Active Post herpetic neuralgia(Confirmed) Active Simple obesity(Confirmed) Active Allergies, Adverse Reactions, Alerts No Known Medication Allergies Medications No data available for this section Results No data available for this section Immunizations No data available for this section Procedures Procedure Date Related Diagnosis Body Site Status Cataract surgery Completed Social History Social History Type Response Smoking Status Never smoker; Type: Cigarett es; Exposure to Tobacco Smoke None; Cigarette Smoking Last 365 Days No; Reg Smoking Cessation Counseling No entered on: 10/16/19 Assessment and Plan No data available for this section
--- OUTSIDE RECORDS SUMMARY | 2020-01-14 06:14 | XMS REPORT | Summary of Care ---
:1950 Author Organization [facility] Neurology [place] Address [address] [place] [address]- phone Encounter HQ Encntr_alias(FIN) [id number] Date(s): 11/27/19 - 11/27/19 [facility] [address] [place] [address]- [phone] Attending Physician: Brennan Kim MD Referring Physician: [...]
--- OUTSIDE RECORDS SUMMARY | 2020-01-14 06:14 | XMS REPORT | Summary of Care ---
:1950 Author Organization [facility] Neu[facility] [place] Address [address] [place] [address]- Encounter HQ Gary_letty(FIN) [id number] Date(s): 01/01/20 - 01/01/20 [facility] [address] [place] [address]- [phone] Discharge Disposition: Home or Self Care Attending Physician: Brennan Kim MD Referring Physician: Brennan Kim MD Vital Signs Most recent to oldest [Reference Range]: 1 Height 162.56 cm (01/01/20 3:18 PM) Blood Pressure [90-140/60-90 mmHg] 164/88 mmHg *HI* (01/01/20 3:18 PM) Respiratory Rate [14-20 BRMIN] 16 BRMIN (01/01/20 3:18 PM) Peripheral Pulse Rate [60-100 bpm] 68 bpm (01/01/20 3:18 PM) Weight 82.273 kg (01/01/20 3:18 PM) Body Mass Index 31.13 m2 (01/01/20 3:18 PM) Problem List Condition Effective Dates Status Health Status Informant COLLETTE positive(Confirmed) Active Chest pain(Confirmed) Resolved Hyperlipidemia(Confirmed) Active Hypertension(Confirmed) Active Lumbar radiculopathy(Confirmed) Active Post herpetic neuralgia(Confirmed) Active Simple obesity(Confirmed) Active Scleroderma(Confirmed) Active Allergies, Adverse Reactions, Alerts No Known Medication Allergies Medications gabapentin 300 mg oral capsule 300 mg = 1 cap, PO, Bedtime, # 90 cap, 2 Refill(s), Pharmacy: [facility] #[id number], 162.56, cm, 01/01/20 15:18:00 CDT, Height, 82.273, kg, 01/01/20 15:18:00 CDT, Weight Start Date: 01/01/20 Stop Date: 09/27/20 Status: Ordered Results No data available for this section Immunizations No data available for this section Procedures Procedure Date Related Diagnosis Body Site Status Cataract surgery Completed Social History Social History Type Response Smoking Status Never smoker; Type: Cigarett es; Exposure to Tobacco Smoke None; Cigarette Smoking Last 365 Days No; Reg Smoking Cessation Counseling No entered on: 01/01/20 Assessment and Plan No data available for this section
--- OUTSIDE RECORDS SUMMARY | 2020-01-14 06:15 | XMS REPORT ---
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 Problem Gastroesophageal reflux disease K21.9 Active without esophagitis Problem 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 Problem 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 Active Problem Follicular lymphoma, unspecified C82.90 Active body region, unspecified follicular lymphoma type Problem Elevated triglycerides with high E78.2 Active cholesterol Problem CKD (chronic kidney disease), stage N18.3 Active III Problem HTN (hypertension) I10 Active Problem Osteoarthritis of both knees, M17.0 Active unspecified osteoarthritis type Problem Dyspareunia in female N94.10 Active Problem Screening for osteoporosis Z13.820 A ctive Problem Hyperlipidemia E78.5 Active Problem 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
--- OUTSIDE RECORDS SUMMARY | 2020-01-14 06:15 | XMS REPORT ---
:1950 Author Organization [employer] Care Team Providers Name Role Phone Trammell, Na Provider Role Unavailable Allergies No Known Allergies Problems Problem Type Condition Code Onset Dates Condition Statu s Assessment CKD (chronic kidney disease), stage N18.3 Active III Assessment Follicular lymphoma, unspecified C82.90 Active body region, unspecified follicular lymphoma type Assessment HTN (hypertension) I10 Active Problem Elevated blood pressure reading in I10 Active office with diagnosis of hypertension Assessment Hyperlipidemia E78.5 Active Problem Renal insufficiency N28.9 Active Problem Leukopenia, unspecified type D72.819 Active Problem 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 Active Problem Decreased hearing of left ear H91.92 Active Problem 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
--- OUTSIDE RECORDS SUMMARY | 2020-01-14 06:15 | XMS REPORT | Continuity of Care Document ---
:[address] [facility] t Address [address] [place] [address] Care Team Providers Name Role Phone Wing SOLANO Primary Care Physician Unavailable Wing SOLANO Attending Clinician Unavailable BALDO Attending Clinician Unavailable Perry Kim Attending Clinician NasWing lewis MD Attending Clinician Jairo Woods APN Attending Clinician Tenzin DENIS, C Attending Clinician Unavailable Molly PIE FILLING MIXER, N Attending Clinician Payers Payer Name Policy Type Policy Number Effective Date Expiration Date S ade BCBS PPO POS OUT [id number] 2019 OF STATE GENERIC 00:00:00 Problems Condition Condition Condition Status Onset Resolution Last Treating Co mments Source Name Details Category Date Date Treatment Clinician Date Other Other Disease Active Last nonspecifi nonspecifi 3-20 Assessmen Anderso c abnormal c abnormal 00:00: t & Plan: n finding of finding of 00 Patient lung field lung field has been followed in the pulmonary clinic since April 2016 for evaluatio n of a spiculate d right upper lobe nodule that was eventuall y biopsied in April 2018. Pathology was negative for malignanc y. She has continued follow up in pulmonary .On evaluatio n today, nodule appears smaller than previousl y noted. Now it is 5mm in size, and other smaller nodules are noted to be stable as well. The case was reviewed with Dr. Nolasco who agrees that we can put the patient in pending at this time. We are happy to see the patient as needed. Follicular Follicular Disease Active Last M D lymphoma lymphoma 5-24 Assessmen And erso grade I of grade I of 00:00: t & Plan: n lymph lymph 00 Laxmi V nodes of nodes of Nuno sandy delgado is a 69 sites sites y.o. female who presents with stage IVB follicula r lymphoma, grade 1, diagnosed in December 2014. She is status post Rituxan/B endamusti ne x6 cycles from 5 - 6, resulting in complete remission . She is currently under observati on by the Lymphoma/ Myeloma service. Hypertensi Hypertensi Disease Active M D ve ve 2-16 Anderso disorder disorder 00:00: n 00 Gastroesop Gastroesop Disease Active M D hageal hageal 2-16 Anderso reflux reflux 00:00: n disease disease 00 Anemia Anemia Disease Active 2-02 Anderso 00:00: n 00 Vascular Vascular Disease Active ectasia of ectasia of 1-12 An derso gastric gastric 00:00: n antrum antrum 00 Postherpet Postherpet Disease Active M D ic ic 3-10 Anderso neuralgia neuralgia 00:00: n 00 Solitary Solitary Problem [facility] nodule nodule [facility] Clin[facility] Left foot Left foot Problem Active [facility] pain pain [facility] Unsteady Unsteady Problem [facility] gait gait [facility] Decreased Decreased Problem Active [facility] hearing of hearing of Xena kes - left ear left ear Memori a l Outpati ent Clinics Gastroesop Gastroesop Problem Active [facility] hageal hageal [facility] - reflux reflux Memoria disease disease l without without Outpati esophagiti esophagiti en t s s Clinics Leukopenia Leukopenia Problem Active [facility] , , [facility] - unspecifie unspecifie Me moria d type d type l Outpati ent Clinics Osteoarthr Osteoarthr Problem Active [facility] itis of itis of [facility] - lower back lower back Me moria l Outpati ent Clinics COLLETTE COLLETTE Problem Active [facility] positive positive [facility]ics CREST CREST Problem Active [facility] (calcinosi (calcinosi Xena kes - s, s, Memoria Raynaud's Raynaud's l phenomenon phenomenon Ou tpati , , ent esophageal esophageal Cl inics dysfunctio dysfunctio n, n, sclerodact sclerodact yly, yly, telangiect telangiect diane) dinae) Elevated Elevated Problem Active [facility] blood [facility] - pressure pressure Memori a reading in reading in l office office Outpati with with ent diagnosis diagnosis Clin ics of of hypertensi hypertensi on on Renal Renal Problem Active [facility] insufficie insufficie Xena kes - ncy ncy [facility] l Outpati ent Clinics Hyperlipid Hyperlipid Problem Active [facility] emia emia [facility] Screening Screening Problem Active [facility] for for [facility] - osteoporos osteoporos Me moria is is l [facility] Herpes Herpes Problem Active 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 chemothera Ou tpati py py ent Clinics Follicular Follicular Problem Active [facility] lymphoma, lymphoma, Luke s - unspecifie unspecifie Me moria d body d body l region, region, Outpati unspecifie unspecifie en t d d Clinics follicular follicular lymphoma lymphoma type type CKD CKD Problem Active [facility] (chronic (chronic [facility] - kidney kidney Memoria disease), disease), l stage III stage III Outp ati ent Clinics Dyspareuni Dyspareuni Problem Active [facility] a in a in [facility] - female female [facility] l Outpati ent Clinics Osteoarthr Osteoarthr Problem Active [facility] itis of itis of [facility] - both both Memoria knees, knees, l unspecifie unspecifie Ou tpati d d ent osteoarthr osteoarthr Cl inics itis type itis type Chondromal Chondromal Problem Active [facility] acia acia [facility] - patellae patellae Memori a of right of right l knee knee Outpati ent Clinics Chondromal Chondromal Problem Active [facility] acia acia [facility] - patellae patellae Memori a of left of left l knee knee Outpati ent Clinics Elevated Elevated Problem Active [facility] triglyceri triglyceri Xena kes - graciela with graciela with Memori a high high l cholestero cholestero Ou tpati l l ent Clinics Cramps of Cramps of Diagnosis Active [facility] lower lower [facility] - extremity extremity Bryan shin l [facility]ics Hypernatre Hypernatre Diagnosis Active [facility] melanie melanie [facility] Other Other Diagnosis Active [facility] constipati constipati Xena kes - on on Memoria l [facility] Post Post Problem Active [facility] herpetic herpetic [facility] - neuralgia neuralgia Bryan shin l [facility] History of History of Diagnosis Active [facility] shingles shingles [facility] Lumbar Lumbar Diagnosis Active [facility] back pain back pain Luke [facility] - with with Memoria radiculopa radiculopa l thy thy Outpati affecting affecting ent left lower left lower Cl inics extremity extremity Chest pain Problem Resolve 2020-01-04 Memoria (finding) d 00:36:40 l Chest [place] pain (finding) Resolved Problem 01/04/2020 [facility] Hyperlipid Problem Active 2020-01-04 M emoria emia 00:36:40 l (disorder) Adalberto n Hyperlipid emia (disorder) Active Problem 01/04/2020 [facility] Lumbar Problem Active 2020-01-04 Memor ia radiculopa 00:36:40 l thy Lumbar Donald (disorder) radiculopa thy (disorder) Active Problem 01/04/2020 [facility] Simple Problem Active 2020-01-04 Memor ia obesity 00:36:40 l (disorder) Simple Herm wali obesity (disorder) Active Problem 01/04/2020 [facility] 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 [place] (finding) Anti-nucle ar factor positive (finding) Active Problem 01/04/2020 [facility] Systemic Problem Active 2020-01-04 Mem oria sclerosis 00:36:40 l (disorder) 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) Active Problem 01/04/2020 [facility] Abnormal Diagnosis Active 2019-10-02 M emoria immunologi 02:45:54 l miroslava Abnormal Adalberto n finding in immunologi serum, miroslava unspecifie finding in d serum, unspecifie d Active Diagnosis 10/02/2019 [facility] Essential Problem Active 2019-10-02 Me moria (primary) 02:45:54 l hypertensi Adalberto n on Essential (primary) hypertensi on Active Problem 0 [facility] Postherpet Diagnosis Active 2019-10-02 Memoria ic 02:45:54 l trigeminal Adalberto n neuralgia Postherpet ic trigeminal neuralgia Active Diagnosis 10/02/2019 [facility] Renal Diagnosis Active 2019-10-02 Mem oria insufficie 02:45:54 l ncy Renal Donald insufficie ncy Active Diagnosis 10/02/2019 [facility] Osteoarthr Diagnosis Active 2019-10-02 Memoria itis 02:45:54 l [place] Osteoarthr itis Active Diagnosis 10/02/2019 [facility] Systemic Problem Active 2019-10-02 Mem oria involvemen 02:45:54 l t of Systemic Adalberto n connective involvemen tissue, t of unspecifie connective d tissue, unspecifie d Active Problem 10/02/2019 [facility] Other Problem Active 2019-10-02 Memor ia specified 02:45:54 l disorders Other Adalberto n involving specified the immune disorders mechanism involving the immune mechanism Active Problem 10/02/2019 [facility] Abnormal Problem Active 2019-10-02 Mem oria finding of 02:45:54 l blood Abnormal Adalberto n chemistry, finding of unspecifie blood d chemistry, unspecifie d Active Problem 10/02/2019 [facility] Lumbar Diagnosis Active 2019-10-02 Mem oria radiculopa 02:45:54 l thy Lumbar Donald radiculopa thy Active Diagnosis 10/02/2019 [facility] Allergies, Adverse Reactions, Alerts Allergy Allergy Status Severity Reaction(s) Onset Inactive Treating Comm ents Source Name Type Date Date Clinician N.K.D.A. N.K.D.A. Active Info Not Bryan shin Available 5-19 l 00:00: [place] 00 No Known No Known Active Memori a Medicati Medicati l on on Donald Aldridge s s Social History Social Habit Start Date Stop Date Quantity Comments Source Sex Assigned At MD Rueda on Tobacco use and 2018-08-09 2018-08-09 Never used MD Rueda on exposure 00:00:00 00:00:00 Alcohol intake 2018-08-09 2018-08-09 Current MD Jorge cool 00:00:00 00:00:00 non-drinker of alcohol (finding) Smoking Status Start Date Stop Date Source Never smoker MD Gilomre Medications Ordered Filled Start Stop Current Ordering Indication Dosage Frequency Signature Comments Components Source Medication Medication Date Date Medication? Clinician (SIG) Name Name gabapentin 2019- Yes 300 mg = 1 M emoria 300 MG Oral 12-31 cap, PO, l Capsule 20:58: Bedtime, # Herm wali 00 90 cap, 2 Refill(s), Pharmacy: [id number], 162.56, cm, 01/01/20 15:18:00 CDT, Height, 82.273, kg, 01/01/20 15:18:00 CDT, Weight Linzess Linzess 2020- Yes Na Jp wharton [facility] 12-08 capsule [facility] - 00:00: 00:00 Memoria 00 :00 l Outpati ent Clinics rosuvastati 2019-0 Yes 10mg Take 10 mg MD n (CRESTOR) 6-23 by mouth Kelvin rso 10 mg 19:01: daily. n tablet 56 Last dose: 12/15/14 losartan 2020-0 Yes 50mg Take 50 mg MD (COZAAR) 50 6-23 by mouth Kelvin rso mg tablet 19:01: daily. n 56 carvedilol 2020-0 Yes 25mg Take 25 mg M D (COREG) 6-23 by mouth Anderso 6.25 mg 19:01: twice n tablet 56 daily. DOCOSAHEXAN 2020-0 Yes 2{capsu Take 2 M D OIC 6-23 le} capsules Anderso ACID/EPA 18:05: by mouth n (FISH OIL 09 daily. ORAL) Drug: fish oil 1200mg. Last dose: 12/14/14 b complex 2020-0 Yes 1{tbl} Take 1 MD vitamins 6-23 tablet by Mohit o tablet 18:05: mouth n 09 daily. Last dose: 12/14/14 ascorbic 2020-0 Yes 1000mg Take 1,000 M D acid 6-23 mg by Anderso (VITAMIN C) 18:05: mouth n 1000 mg 09 daily. tablet Last dose: 12/14/14 POLYETHYLEN 2020-0 Yes 1{packe Take 1 M D E GLYCOL 6-23 t} packet by Mohit o 3350 18:05: mouth as n (MIRALAX 09 needed. ORAL) cholecalcif 2020-0 Yes 2000U Take 2,000 MD gwen, 6-23 Units by Jorge vitamin D3, 18:05: mouth n 1,000 units 09 daily. tablet DOCUSATE 2020-0 Yes 1{capsu Take 1 MD SODIUM 6-23 le} capsule by Jorge (COLACE 18:05: mouth as n ORAL) 09 needed. gabapentin 2020-0 2020- No 300mg Take 300 M D (NEURONTIN) 6-23 06-23 mg by Mohit o 300 mg 18:04: 00:00 mouth n capsule 22 :00 every evening. Rosuvastati 2020-0 Yes Bhavna 1 tablet Memoria n Calcium 5-20 Vo l 02:45: Donald 54 Valacyclovi 2020-0 Yes Bhavna 1 tablet Memoria r HCl 5-20 Vo l 02:45: Donald 54 Vitamin D3 2020-0 Yes Bhavna 1 capsule Memoria 5-20 Vo l 02:45: Donald 54 Vitamin C 2020-0 Yes Bhavna 1 tablet Memoria 5-20 Vo l 02:45: Donald 54 Losartan 2020-0 Yes Bhavna 1 tablet Memoria Potassium 5-20 Vo l 02:45: Donald 54 Super B 2020-0 Yes Bhavna not Bryan shin Complex 5-20 Vo defined l 02:45: Donald 54 Vitamin E 2020-0 Yes Bhavna 1 capsule Memoria 5-20 Vo l 02:45: Donald 54 Fish Oil 2020-0 Yes Bhavna not Mem oria 5-20 Vo defined l 02:45: Donald 54 Calcium 2020-0 Yes Bhavna not Bryan shin 5-20 Vo defined l 02:45: Donald 54 Gabapentin 2020-0 Yes Bhavna 1 capsule Memoria 5-20 Vo l 02:45: Donald 54 Carvedilol 2020-0 Yes Bhavna 2 tablets Memoria 5-20 Vo l 02:45: Donald 54 Gabapentin 2019-0 Yes Bhavna 1 capsule Memoria 9-18 Vo l 02:45: Donald 58 Fluticasone 2019-0 Yes Bhavna 1 spray in Memoria Propionate 9-18 Vo each l 02:45: nostril Donald 58 Calcium 2019-0 Yes Bhavna not Bryan shin 9-18 Vo defined l 02:45: 58 Azelastine 2018- Yes Bhavna 1 puff in Memoria HCl 9-18 Vo each l 02:45: nostril Donald 58 Carvedilol 2018- Yes Bhavna 2 tablets Memoria 9-18 Vo l 02:45: 58 Yuvafem 2019-0 Yes Bhavna 1 tablet Memoria 9-18 Vo l 02:45: 58 Diclofenac Diclofenac 2018- Yes Na Trammell [address] [facility] [address] Sodium Sodium 5-10 applicatio [facility] - 00:00: n to Memoria 00 affected l area Outpati ent Clinics fluticasone 2020- No 1{spray Inhale 1 MD propionate 07-25 } spray into An derso (FLONASE) 00:00: 00:00 each n 50 00 :00 nostril mcg/spray twice nasal spray daily. azelastine 2020- No 1{spray Apply 1 MD (ASTELIN) 06-27 } spray to Slim so 137 00:00: 00:00 each nare n mcg/spray 00 :00 twice nasal spray daily. gabapentin 2017-05 Yes 300 mg = 1 M emoria 300 MG Oral 2-11 cap, PO, l Capsule 18:03: Bedtime, # Herm wali 00 90 cap, 2 Refill(s), Pharmacy: [facility] [id number] Omeprazole 2017-05 Yes 40 mg, PO, M emoria 2-11 Daily, 0 l 16:42: Refill(s) rosuvastati 2017-05 Yes 10 mg, PO, Memoria n 2-11 Daily, 0 l 16:42: Refill(s) Losartan 2017-05 Yes 50 mg, PO, Mem oria 2-11 Daily, 0 l 16:42: Refill(s) valacyclovi 2017-05 Yes 500 mg, Mem oria r 2-11 PO, Daily, l 16:42: # 21 tab, Donald 00 0 Refill(s) carvedilol 2017-05 Yes 25 mg, PO, M emoria 2-11 Daily, 0 l 16:42: Refill(s) Donald 00 valACYclovi Yes Follicular 500mg Take 1 MD r (VALTREX) 9-24 lymphoma tablet An derso 500 mg 00:00: grade I of (500 mg) n tablet 00 lymph nodes by mouth of multiple daily. sites gabapentin Yes Chronic TAKE 1 MD (NEURONTIN) 1-03 iron TABLET(600 An derso 600 mg 00:00: deficiency MG) BY n tablet 00 anemia MOUTH secondary THREE to blood TIMES loss DAILY Losartan Losartan Yes Na Trammell TAKE [address] Potassium Potassium TABLET BY [facility] - MOUTH Memoria EVERY DAY l Outpati ent Clinics Rosuvastati Rosuvastati Yes Na Trammell [address] [facility] n Calcium n Calcium [facility] ent [facility]ics Neurontin Neurontin Yes Na Trammell [address] [facility] before [facility] - bedtime [facility]oria l Outpati ent Clinics Tizanidine Tizanidine Yes Na Trammell [address] [facility] HCl HCl as needed [facility] Carvedilol Carvedilol Yes Na Trammell [address] [facility] Nitrofurant Nitrofurant Yes Na Trammell not [facility] oin Monohyd oin Monohyd defined [facility] - Macro Macro [facility] l Outpati ent Clin[facility] [place] 3 [place] 3 Yes Na Trammell [address] [facility]ics Shingrix Shingrix Yes Na Trammell not [facility] defined [facility]ics Cozaar Cozaar Yes Na Trammell [address] [facility] ONCE A DAY [facility] - ORALLY Memoria l Outpati ent Clinics Fluticasone Fluticasone Yes Na Trammell not [facility] Propionate Propionate defined [facility] Yuvafem Yuvafem Yes Na Trammell not [facility] defined [facility] MethylPREDN MethylPREDN Yes Na Trammell not [facility] ISolone ISolone defined [facility] Vitamin A Vitamin A Yes Na Trammell [address] [facility]ics Fish Oil Fish Oil Yes Na Trammell [address] [facility] Omeprazole Omeprazole Yes Na Trammell [address] [facility] ProAir HFA ProAir HFA Yes Na Trammell [address] [facility] needed [facility] l [facility] Azelastine Azelastine Yes Na Trammell not [facility] HCl HCl defined [facility] - [facility] Vitamin D Vitamin D Yes Na Trammell [address] [facility] Vitamin E Vitamin E Yes Na Trammell [address] [facility] Immunizations Ordered Filled Immunization Date Status Comments Sourc e Immunization Name Name FluAD FluAD 2019-01-[address] [facility] 00:00:00 [facility] Influenza (IM) 2017-02-01 Completed MD Jorge cool Preservative Free 00:00:00 Vital Signs Vital Name Observation Time Observation Value Comments Source WEIGHT 2019-11-05 00:00:00 85.1 kg WEIGHT 2019-11-05 00:00:00 85.1 kg WEIGHT 2019-11-05 00:00:00 85.1 kg WEIGHT 2019-11-05 00:00:00 85.1 kg Systolic (mm Hg) 2020-01-01 20:18:00 Bryanhortensia Bennett Diastolic (mm Hg) 2020-01-01 [facility] 2020-01-01 20:18:00 [facility] Resp[facility] 2020-01-01 [facility] 2020-01-01 20:18:[address] [facility] Weight 2020-01-01 20:18:00 [facility] BMI Calculated 2020-01-01 20:18[facility]00 [facility] Systolic blood 2019-11-05 18:59:00 142 mm[Hg] pressure Diastolic blood 2019-11-05 18:59:00 83 mm[Hg] MD Spring jonesson pressure Heart rate 2019-11-05 18:59:00 65 /min MD Slim wade Body temperature 2019-11-05 18:59:00 36.78 Mitzy MD Jairo ceballoson Respiratory rate 2019-11-05 18:59:00 19 /min MD Jairo salazar Body weight 2019-11-05 18:59:00 85.1 kg MD Slim wade BMI 2019-11-05 18:59:00 32.43 kg/m2 MD Smalls son Oxygen saturation in 2019-11-05 18:59:00 99 /min MD Gilmore Arterial blood by Pulse oximetry Systolic (mm Hg) 2019-10-16 18:19:00 Bryan rial Donald Diastolic (mm Hg) 2019-10-16 18:19:00 Mem orial Donald Heart Rate 2019-10-16 18:19:00 [facility] [place] Respitory Rate 2019-10-16 18:19:00 Memori al Donald Height 2019-10-16 18:19:00 162.56 cm [facility] [place] Weight 2019-10-16 18:19:00 [facility] Donald BMI Calculated 2019-10-16 18:19:00 Memori al Donald Systolic (mm Hg) 2019-09-17 16:02:00 Bryan rial Donald Diastolic (mm Hg) 2019-09-17 16:02:00 Mem orial [place] Heart Rate 2019-09-17 16:02:00 [facility] Donald Respitory Rate 2019-09-17 16:02:00 Memori al Donald Height 2019-09-17 16:02:00 162.56 cm [facility] [place] Weight 2019-09-17 16:02:00 [facility] Donald BMI Calculated 2019-09-17 16:02:00 Memori al Donald Weight 2019-01-29 15:30:00 [facility] [place] Height 2019-01-29 15:30:00 [facility] [place] Heart Rate 2019-01-29 15:30:00 [facility] Donald Diastolic (mm Hg) 2019-01-29 15:30:00 Mem orial Donald Systolic (mm Hg) 2019-01-29 15:30:00 Bryan rial [place] Systolic (mm Hg) 2019-01-01 15:05:00 Bryan rial [place] Diastolic (mm Hg) 2019-01-01 15:05:00 Mem orial [place] Heart Rate 2019-01-01 15:05:00 [facility] Donald Respitory Rate 2019-01-01 15:05:00 Memori al [place] Height 2019-01-01 15:05:00 162.56 cm [facility] [place] Weight 2019-01-01 15:05:00 [facility] [place] BMI Calculated 2019-01-01 15:05:00 Memori al Donald Heart Rate 2018-06-05 16:31:00 [facility] Donald Respitory Rate 2018-06-05 16:31:00 Memori al Donald Systolic (mm Hg) 2018-06-05 16:31:00 Bryan rial [place] Diastolic (mm Hg) 2018-06-05 16:31:00 Mem orial [place] Height 2018-06-05 16:31:00 162.56 cm [facility] [place] Weight 2018-06-05 16:31:00 [facility] Donald BMI Calculated 2018-06-05 16:31:00 Memori al Donald Height 2018-04-24 16:40:00 165.1 cm [facility] [place] BMI Calculated 2018-04-24 16:40:00 Memori al [place] Weight 2018-04-24 16:40:00 [facility] [place] Heart Rate 2018-04-24 16:40:00 [facility] [place] Systolic (mm Hg) 2018-04-24 16:40:00 Bryan rial Donald Diastolic (mm Hg) 2018-04-24 16:40:00 Mem orial Donald Procedures Procedure Date / Time Performing Clinician Source Performed CT CHEST ABDOMEN PELVIS W 2019-11-04 21:14:06 Suyapa Solano MD CONTRAST LYMPHOMA COMPLETE BLOOD COUNT W/ 2019-11-04 18:21:00 Suyapa Solano MD DIFFERENTIAL COMPREHENSIVE METABOLIC 2019-11-04 18:21:00 JeantoSuyapa garcia MD PANEL LACTATE DEHYDROGENASE 2019-11-04 18:21:00 Suyapa Solano MD THYROID STIMULATING HORMONE 2019-11-04 18:21:00 Gretchen Solano MD VITAMIN D 25 HYDROXY LEVEL 2019-11-04 18:21:00 NastoKhurram garcia MD Results CBC 2019-11-04 18:21:00 Suyapa Solano MD And eugenia MANUAL DIFFERENTIAL 2019-11-04 18:21:00 Suyapa Solano MD GLUCOSE LEVEL 2019-11-04 18:21:00 Suyapa Solano MD And eugenia ELECTROLYTE PANEL 2019-11-04 18:21:00 NasSuyapa lewis MD nderson SERUM CREATININE 2019-11-04 18:21:00 NastoupilSuyapa MD .GLOMERULAR FILTRATION RATE 2019-11-04 18:21:00 Gretchen Solano MD CALCIUM LEVEL TOTAL 2019-11-04 18:21:00 JeantoSuyapa garcia MD ALBUMIN LEVEL 2019-11-04 18:21:00 NastoSuyapa garcia MD And erson ALKALINE PHOSPHATASE 2019-11-04 18:21:00 NastoSuyapa garcia ALANINE AMINOTRANSFERASE 2019-11-04 18:21:00 NastoupilSuyapa MD ASPARTATE AMINOTRANSFERASE 2019-11-04 18:21:00 JeantopatyilKhurram MD TOTAL PROTEIN 2019-11-04 18:21:00 JeantopatyilSuyapa MD And erson FRACTIONATED BILIRUBIN 2019-11-04 18:21:00 Suyapa Solano MD BLOOD UREA NITROGEN 2019-11-04 18:21:00 Suyapa Solano MD Cataract surgery [facility] Encounters Start End Encounter Admission Attending Care Care Encounter Source Date/Time Date/Time Type Type Clinicians Facility Department ID 2020-11-02 2020-11-02 Outpatient MARGI SOLANO GINETTE PENG [id number] 00:00:00 00:00:00 SUYAPA cool 2020-11-01 2020-11-01 Outpatient MARGI BLAND GINETTE PENG [id number] 00:00:00 00:00:00 ELMER cool 2020-11-01 2020-11-01 Outpatient [place]GI [place]ANDGINETTE [place] [id number] 00:00:00 00:00:00 ELMER cool 2020-01-01 2020-01-01 [id number] 15:15:00 23:59:59 Brennan Amador 2019-12-09 2019-12-09 [facility] [id number] 10:20:00 10:20:00 G[facility]EC[facility] 2019-11-28 2019-11-28 [facility] [id number] [facility] 16:48:00 16:48:00 [facility] l Medicine Outpati ent Clinics 2019-11-27 2019-11-27 Outpatient ZURDO KimSCHER MISCHER [id number] 13:45:00 13:45:00 Brennan Vani Amador 2019-11-27 2019-11-27 [facility] [id number] 13:45:00 13:45:00 Brennan Jyoti Amador 2019-11-05 2019-11-06 Outpatient MHMISCHER MHMISCHER [id number] 13:28:25 23:59:59 2019-11-05 2019-11-05 Outpatient EL NASTOUPIL, MDA MDA [id number] 13:42:41 14:53:18 SUYAPA cool 2019-11-05 2019-11-05 Outpatient EL NASTOUPIL, MDA MDA [id number] 12:11:16 14:47:39 SUYAPA cool 2019-11-04 2019-11-04 Outpatient EL NASTOUPIL, MDA MDA [id number] 14:57:52 23:59:00 SUYAPA cool 2019-11-04 2019-11-04 Outpatient EL NASTOUPIL, MDA MDA [id number] 13:40:59 14:56:00 SUYAPA cool 2019-11-04 2019-11-04 Outpatient EL NASTOUPIL, MDA MDA [id number] 13:09:24 13:39:00 SUYAPA cool 2019-10-24 2019-10-24 [facility] [id number] 11:22:00 11:22:00 [facility] Medicine Outpati ent Clinics 2019-10-21 2019-10-21 [facility] [id number] 10:05:00 10:05:00 [facility] Medicine l Medicine Outpati ent Clinics 2019-10-16 2019-10-16 Outpatient ZURDO KimSCHER MISCHER [id number] 13:00:00 23:59:59 Brennan 05 Perry 2019-10-08 2019-10-08 [id number] 14:15:00 14:15:00 Brennan 04 Perry 2019-10-01 2019-10-01 Outpatient PRL - [facility] - [id number] [facility] 11:30:00 11:30:00 [facility]umat[facility] [place] [facility] 2019-09-17 2019-09-17 Outpatient Julio ZURDOSCHJAZZY MISCHER [id number] 10:45:00 23:59:59 Brennan 03 [facility] 2019-09-09 2019-09-09 [facility] [id number] [facility] 11:00:00 11:00:00 t [facility] ent [facility] 2019-06-10 2019-06-10 [facility] [id number] [facility] 10:20:00 10:20:00 t [facility] ent [facility] 2019-05-23 2019-05-23 [facility] [id number] [facility] 16:57:00 16:57:00 t [facility] ent Clinics 2019-05-02 2019-05-02 [facility] [id number] 11[facility]00:00 11:00:00 [facility] [place] [facility] Clinics 2019-03-12 2019-03-12 [facility] [id number] 16:38:00 16:38:00 t [employer] [facility] ent Clinics 2019-03-04 2019-03-04 [facility] [id number] [address] 08[facility]00:00 08:00:00 t [facility] [place] ent Clinics 2019-02-11 2019-02-11 [facility] [id number] 15:20:00 15:20:00 t [facility] [facility] ent Clinics 2019-01-29 2019-01-29 Outpatient PRL - PRL - [id number] [facility]inic 10:30:00 10:30:00 Rheumatol [facility] 2019-01-24 2019-01-24 [facility] [id number] 08[facility]00:00 08:00:[address] [facility] 2019-01-01 2019-01-01 Outpatient FELIPE Kim [id number] 10:00:00 23:59:59 Brennan Perry 2019-01-01 2019-01-01 [facility] [id number] 08:15:00 08:15:[address] [facility] 2018-08-17 2018-08-17 [facility] [id number] 11:57:00 11:57:[address] [facility] 2018-08-10 2018-08-10 Outpatient EL NASTOUPIL, MDA MDA [id number] 10:52:52 23:59:00 SUYAPA cool 2018-06-13 2018-06-13 [facility] [id number] [address] 14:30:00 14:30:[address] [facility] 2018-06-05 2018-06-05 Outpatient FELIPE Kim [id number] 10:45:00 23:59:59 Brennan Perry 2018-04-30 2018-05-01 Outpatient FELIPE WANG [id number] 10:01:00 23:59:59 00 2018-04-24 2018-04-24 Outpatient FELIPE Kim [id number] 11:30:00 23:59:59 Brennan 00 Perry Results Test Description Test Time Test Comments Results Result Comments Source Vitamin D 25OH 2019-11-05 14:51:53 Test Item Value Reference Range Interpretation Comme nts Vitamin D 25 OH (test code = 40 ng/mL 30-100 Reference Range: Deficiency: 8018) <10 ng/mLInsuff iciency: 10-29 ng/mLSufficienc y: 30-100 ng/mLPotential toxicity: >100 ng/mL MD GilmoreCT Chest Abdomen Pelvis with Contrast [id number] 21:58:441. Resolution of right T3 paravertebral soft tissue thickening. 2. Stable left retroperitoneal soft tissue thickening. 3. No new or progressive lymphadenopathy in the chest, abdomen, or pelvis. 4. Stable indeterminant 5 mm right upper lobe spiculated nodule.Interface, Radiology Results In - 11/04/2019 5:00 PM CDTFULL RESULT:Examination: CT Chest abdomen pelvis with Contrast, 11/04/2019 4:14 PM.Clinical History: Follicular lymphoma grade I of lymph nodes of multiple sitesIndication: Assess for lymphoma progressionComparison: CT dated.Technique: CT of the chest abdomen pelvis with IV and oral contrast.Findings: Chest:Stable 5 mm spiculated right upper lobe pulmonary nodule (7/35). Stablenonspecific 4 mm right upper lobe nodule (7/75). Stable 6 mm nodular focus along the right horizontal fissure (7/68). No consolidation or effusion.Resolution of curvilinear soft tissue thickening alongthe right T3 vertebral body (11/04).No supraclavicular, axillary, mediastinal, or hilar lymphadenopathy.The cardiac chamber sizes are normal. No pericardial effusion.Abdomen and pelvis:No suspicious hepatic lesion. Focal fatty infiltration noted in segment IV. No biliary ductal dilatation. The gallbladder is unremarkable.No splenomegaly or suspicious splenic lesion.The pancreas and adrenal glands are unremarkable.The kidneys enhance symmetrically. Stable fullness of the left renal pelvis without evidence of shannon hydronephrosis. Stable too small to characterize cortical hypodensities, statistically c ysts.Stable soft tissue thickening in the left retroperitoneum that surrounds the left renal artery and vein.No retroperitoneal, mesenteric, pelvic, or inguinal lymphadenopathy.No evidence of bowel obstruction. Scattered sigmoid diverticula without evidence of diverticulitis.The uterus, adnexa, and urinary bladder are unremarkable.Bones:No suspicious osseous lesion.IMPRESSION:1. Resolution of right T3 paravertebral soft tissue thickening.2. Stable left retroperitoneal soft tissue thickening.3. No new or progressive lymphadenopathy in the chest, abdomen, or pelvis.4. Stable indeterminant 5 mm right upper lobe spiculated nodule.MD GilmoreFractionated [id number] 19:34:50 Test Item Value Reference Range Interpretation Comments Bili Total (test 0.4 mg/dL <=1.2 Indocyanine Green (ICG) code = 5096) may cause false ly elevated biliru bin results. Total and direct bilirubin must not be measured from s amples containing indo cyanine green. False el evation of total bilirubin can be seen in patient s with IgG concentrations above 28 g/L. Bili Direct (test 0.1 mg/dL <=0.3 Indocyanin e Green (ICG) code = 5094) may cause false ly elevated biliru bin results. Total and direct bilirubin must not be measured from s amples containing indo cyanine green. Bili Indirect (test 0.3 mg/dL 0-0.9 code = 5095) MD GilmoreGlomerular Filtration [id number] 19:34:48 Test Item Value Reference Range Interpretation Comments eGFR-AA (test code = 54 >=60 mL/min/1.73 L Nor mal eGFR: >= 60 8062) sq. m mL/min/1.73 m2N ote: The eGFR is miroslava culated using the CKD-E PI equation. The e GFR declines with a ge. eGFR <60 mL/min /1.73 m2 is considere d as "decreased". Th is equation should only be used for pat ients 18 and older. According to th e National Kidney Foundation's Ki dney Disease Outcome Quality Initiat tarah (KDOQI) classif ication and 2012 Kidney Disease Improvi ng Global Outcomes (KDIGO) Clinica l Practice Guidel ine, the stage of CK D should be categ orized based on estima isabel GFR. Stage Desc ription GFR mL/mi n/1.73 m21 Normal or h igh GFR >=902 Mildly decreased GFR 60-893a M ildly to moderately decreased GFR 45-593b Moderat aliyah to severely decrea sed GFR 30-444 Britt rely decreased GFR 15-295 Kidney f ailure <15 eGFR-ROSA (test code = 47 >=60 mL/min/1.73 L No rmal eGFR: >= 60 8063) sq. m mL/min/1.73 m2N ote: The eGFR is miroslava culated using the CKD-E PI equation. The e GFR declines with a ge. eGFR <60 mL/min /1.73 m2 is considere d as "decreased". Th is equation should only be used for pat ients 18 and older. According to th e National Kidney Foundation's Ki ingridey Disease Outcome Quality Initiat tarah (KDOQI) classif ication and 2011 Kidney Disease Improvi ng Global Outcomes (KDIGO) Clinica l Practice Guidel ine, the stage of CK D should be categ orized based on estima isabel GFR. Stage Desc ription GFR mL/mi n/1.73 m21 Normal or h igh GFR >=902 Mildly decreased GFR 60-893a M ildly to moderately decreased GFR 45-593b Moderat aliyah to severely decrea sed GFR 30-444 Britt rely decreased GFR 15-295 Kidney f ailure <15 Lab Interpretation Abnormal (test code = 13100-9) MD GilmoreTotal [id number] 19:34:47 Test Item Value Reference Range Interpretation Comments Total Protein (test code = 7649) 7.5 g/dL 6.4-8.3 MD [id number] 19:34:46 Test Item Value Reference Range Interpretation Comments LDH (test code = 187 U/L 135-214 Results gre ater than 1800 6111) U/L may not be reliable due to matrix effec t with extended diluti on as it exceeds the man ufacturer s recommended l imit. Caution should be exercised when interpreti ng such values and done in conjunction wit h clinical context. MD GilmoreCalcium [id number] 19:34:45 Test Item Value Reference Range Interpretation Comments Calcium Lvl (test code = 5258) 9.4 mg/dL 8.4-10.2 MD GilmoreAlkaline [id number] 19:34:44 Test Item Value Reference Range Interpretation Comments Alk Phos (test code = 4768) 101 U/L 35-104 MD [id number] 19:34:43 Test Item Value Reference Range Interpretation Comments ALT (test code = 4705) 18 U/L <=33 MD GilmoreAlbumin [id number] 19:34:42 Test Item Value Reference Range Interpretation Comments Albumin Lvl (test code = 4763) 4.2 3.5- 5.2 gm/dL MD [id number] 19:34:41 Test Item Value Reference Range Interpretation Comments BUN (test code = 5055) 29 mg/dL 6-23 H Lab Interpretation (test code = Abnormal 73049-9) MD GilmoreElectrolyte [id number] 19:34:40 Test Item Value Reference Range Interpretation Comments Sodium Lvl (test code = 7355) 135 136- 145 mEq/L L Potassium Lvl (test code = 6854) 4.3 3.5- 5.1 mEq/L Chloride (test code = 5279) 101 98- 107 mEq/L CO2 (test code = 5227) 25 22- 29 mEq/L Anion Gap (test code = 9325) 9 4- 14 mEq/L Lab Interpretation (test code = Abnormal 73219-5) MD GilmoreAspartate [id number] 19:34:39 Test Item Value Reference Range Interpretation Comments AST (test code = 4731) 20 U/L <=32 MD GilmoreGlucose [id number] 19:34:38 Test Item Value Reference Range Interpretation Comments Glucose Level (test 92 mg/dL 70-99 Referenc e range is valid code = 5699) for fasting spe cimens only. Guideline s established by the [place] [employer] claudette fitzs (Standards of M edical Care in Diabete s 2016. Diabetes Care 2 016; 39: S13-22) are gail t a fasting glucose of greater than or equal to 126 mg/dL or a random glucose greater than or equal to 200 mg /dL with symptoms, that are confirmed by re peat testing on a di ere day, meet the betty mason for diabetes me madeline. MD [id number] 19:34:37 Test Item Value Reference Range Interpretation Comments TSH (test code = 7578) 2.66 0.27- 4.20 mcunit/mL MD Gilmore.Serum [id number] 19:34:35 Test Item Value Reference Range Interpretation Comments Creatinine (test code = 5399) 1.19 mg/dL 0.51-0.95 H Lab Interpretation (test code = Abnormal 59127-8) MD Gil[id number] 18:47:17 Test Item Value Reference Range Interpretation Comments Neutrophil % (test code = 74.9 % 42-66 H 97900-4) Lymphocyte % (test code = 16.3 % 24-44 L 737-7) Monocyte % (test code = 8.1 % 2-7 H 744-3) Eosinophil % (test code = 0.0 % 1-4 L 713-8) Basophil % (test code = 0.3 % 0-1 707-0) IGRE % (test code = 0.4 % 0-0.4 IGRE % c ount 42245-3) includes Metamyelocytes, Myelocytes, and Promyelocytes. Neutrophil Abs (test code 5.20 K/uL 1.7-7.3 = 753-4) Lymphocyte Abs (test code 1.13 K/uL 1-4.8 = 732-8) Monocyte Abs (test code = 0.56 K/uL 0.08-0.7 743-5) Eosinophil Abs (test code 0.00 K/uL 0.04-0.4 L = 712-0) Basophil Abs (test code = 0.02 K/uL 0-0.1 705-4) IG Abs (test code = 0.03 K/uL 0-0.04 25435-6) Lab Interpretation (test Abnormal code = 43685-0) MD Gilmore.[id number] 18:47:12 Test Item Value Reference Range Interpretation Comments WBC (test code = 6.9 K/uL 4-11 6690-2) RBC (test code = 789-8) 3.80 4.00- 5.50 M/uL L Hgb (test code = 718-7) 11.7 12.0- 16.0 gm/dL L Hct (test code = 35.6 % 37-47 L 4544-3) MPV (test code = 787-2) 10.2 fL 4-10.4 MCH (test code = 785-6) 30.8 pg 27-31 MCHC (test code = 32.9 31.0- 36.0 gm/dL 786-4) RDW-SD (test code = 45.9 fL 35.1-46.3 62263-4) RDW-CV (test code = 13.4 % 12-15.5 788-0) Platelet count (test 242 K/uL 140-440 code = 777-3) INRBC (test code = 0.0 % <=0.0 The INRBC (instrument 5974) NRBC) value ref lects the enumeration of nucleated red b lood cells contained in a 200uL sampleof whole blood analyzed by the instrument. Thi s value maydiffer from the NRBC value reported in a m anual differential,wh ich is based on a 100 cell differential. Lab Interpretation Abnormal (test code = 30206-9) MD Gilmore
--- OUTSIDE RECORDS SUMMARY | 2020-01-14 06:15 | XMS REPORT ---
:1950 Author Organization [employer] Care Team Providers Name Role Phone Trammell, Na Provider Role Unavailable Allergies, Adverse Reactions, Alerts Substance Reaction Event Type N.K.D.A. Info Not Available Non Drug Allergy Problems Problem Type Condition Code Onset Dates Condition Statu s Assessment Cramps of lower extremity R25.2 Ac tive Assessment Hypernatremia E87.0 Active Assessment Other constipation K59.09 Active Assessment Gastroesophageal reflux disease K21.9 Active without esophagitis Assessment Elevated triglycerides with high E78.2 Active cholesterol Assessment Post herpetic neuralgia B02.29 Acti ve Assessment CKD (chronic kidney disease), stage N18.3 Active III Assessment Hyperlipidemia E78.5 Active Assessment HTN (hypertension) I10 Active Problem Renal insufficiency N28.9 Active Problem Leukopenia, unspecified type D72.819 Active Problem Follicular lymphoma, unspecified C82.90 Active body region, unspecified follicular lymphoma type Problem Decreased hearing of left ear H91.92 Active Problem HTN (hypertension) I10 Active Problem 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 Active Problem Elevated triglycerides with high E78.2 Active cholesterol Problem 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 Problem 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 Problem Gastroesophageal reflux disease K21.9 Active without esophagitis Problem Post herpetic neuralgia B02.29 Acti ve Problem 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 Active Problem Dyspareunia in female N94.10 Active Problem CKD (chronic kidney disease), stage N18.3 Active III Problem 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 Problem Osteoarthritis of both knees, M17.0 Active unspecified osteoarthritis type Assessment History of shingles Z86.19 Active Problem Hyperlipidemia E78.5 Active Assessment Lumbar back pain with radiculopathy M54.16 Active affecting left lower extremity Problem Left foot pain M79.672 Active Problem Solitary pulmonary nodule R91.1 Ac tive Problem Screening for osteoporosis Z13.820 A ctive Problem CREST (calcinosis, Raynaud's M34.1 Active phenomenon, esophageal dysfunction, sclerodactyly, telangiectasia) Problem Elevated blood pressure reading in I10 Active office with diagnosis of hypertension Problem Unsteady gait R26.81 Active Problem COLLETTE positive R76.8 Active Medications Medication Code Code Instructions Start End Status Dosage System Date Date Akin [facility] 00185505640 50 MG Active 1 EACH ONCE A DAY ORALLY Omeprazole [facility] 52067116024 40 MG Orally Active 1 ca psule Once a day Rosuvastatin Calcium [facility] 14716477046 10 MG Orally Ac tive 1 tablet Once a day Vitamin D [facility] 32257108253 2000 UNIT Active 1 tablet Orally Once a day Diclofenac Sodium [facility] 15304379572 3 % September Active 2 gram Transdermal 10, application Twice a day 2018 to affected area Yuvafem [facility] [address]-21 Active not define d Azelastine HCl [facility] [address]-05 Active not defined Carvedilol [facility] 25564693763 25 MG Orally Active 1 ta blet twice a day Linzess [facility] 17454988481 145 mcg orally November Active one c apsule 30 minutes 27, 22, before first 2019 2020 meal ProAir HFA [facility] 62511154887 108 (90 Base) Active 2 p uffs as MCG/ACT needed Inhalation every 6 hrs Tizanidine HCl [facility] 56746552184 2 mg Orally at Active 1 tablet as bedtime needed Nitrofurantoin [facility] [address]-01 Active not defined Monohyd Macro Fluticasone [facility] [address]-22 Active not de fined Propionate Shingrix [facility] [address]-79 Active not defin ed Neurontin [facility] 02077932546 300 MG Orally Active 1 ca psule Once a day before bedtime Fish Oil [facility] 81892577186 1200 MG Orally Active 1 ca psule Once a day Vitamin A [facility] 29759807756 8000 UNIT Active 3 capsul es Orally Once a day Losartan Potassium [facility] 33505577184 50 MG Active T MG 1 TABLET BY MOUTH EVERY DAY Vitamin E [facility] 37862189871 400 UNIT Active 1 capsule Orally Once a day [place] 3 [facility] 21157152871 340 MG Orally Active 1 caps ule Once a day MethylPREDNISolone [facility] [address]-30 Active not defined Results No Known Results Summary Purpose [employer]Works Submission
[2020-01-14] MEDS ORDERED: SCOPOLAMINE HYDROBROMIDE PATCH TD ONE ×2 (06:39→06:45)
[2020-01-14] MEDS ORDERED: CEFAZOLIN/SWI 2gm 2 GM/20 ML SYR ONE (06:39)
[2020-01-14] MEDS ORDERED: Ringers Lactate 1,000 ML IV ONE ×3 (06:39→08:42)
[2020-01-14] MEDS ORDERED: BUPIVACAINE 0.25% PF 30 ML VIAL ONE (06:58)
[2020-01-14] MEDS ORDERED: dexAMETHasone 10 MG/ML VIAL ONE (07:02)
[2020-01-14] MEDS ORDERED: MIDAZOLAM HCL 2 MG/2 ML INJ ONE (07:02)
[2020-01-14] MEDS ORDERED: KETAMINE HCL 500 MG/5 ML VIAL ONE (07:02)
[2020-01-14] MEDS ORDERED: propofoL 200 MG/20 ML VIAL IV ONE (07:02)
[2020-01-14] MEDS ORDERED: ONDANSETRON 4 MG/2 ML VIAL ONE (07:03)
[2020-01-14] MEDS ORDERED: ROCURONIUM 50 MG/5 ML VIAL IV ONE (07:03)
[2020-01-14] MEDS ORDERED: LIDOCAINE 2% MPF 5 ML VIAL ONE (07:03)
[2020-01-14] MEDS ORDERED: FENTANYL CITR 250 MCG/5 ML ONE (07:03)
[2020-01-14] MEDS ORDERED: EPHEDRINE SULF 50 MG/ML VIAL ONE (07:48)
[2020-01-14] MEDS ORDERED: KETOROLAC 30 MG/ML INJ ONE (09:19)
[2020-01-14 10:23] VITALS: TEMP 97.1
[2020-01-14] MEDS ORDERED: HYDROCODONE/APAP 5/325 MG TAB ONE (11:19)
[2020-01-14 12:02] VITALS: BP 137/62; O2SAT 95
--- NOTE | 2020-01-14 20:12 | OP ---
Date of Procedure: 01/14/2020 Surgeon: Claudia Haley MD Engineering Supervisor: Jahaira Chen. Preoperative Diagnoses: Intermittent pelvic pain, recurrent postmenopausal bleeding, left ovarian ve in thrombosis. Postoperative Diagnoses: Intermittent pelvic pain, recurrent postmenopausal bleeding, left ovarian v ein thrombosis. Procedures Performed: Total laparoscopic hysterectomy, bilateral salpingo-oophorectomy. Anesthesia: General endotracheal. Estimated Blood Loss: Minimal. Specimens: Uterus, bilateral tubes and ovaries. Complications: No complications. Drains: No drains. Patient's Condition: Stable. Findings: Uterus, bilateral tubes and ovaries unremarkable. Very small amount of endometriosis left lateral wall noted, scarred. No active implants. The left ovarian vein on close examination had th rombosed veins. No other anomalies were noted. No masses seen here. Indications: The patient is a 69-year-old with a history of recurrent pelvic pain. Low back pain in termittently bothers the patient where she had an ER evaluation and imaging noted left ovarian vein t hrombosis. On clinical evaluation, her pain did not correlate with the finding as noted. She did pr esent with light postmenopausal bleeding where her endometrial sampling was done and had no atypia or malignancy. We observed, but the patient continued to have recurrent pain, and so given the finding s and her symptoms, gastrointestinal workup was negative. No urinary findings. Although there was n o positive pathology that was noted on evaluation gynecologically, her cramping and pain very represe ntative of her pain with dysmenorrhea. We decided that the patient would prefer to have a hysterecto my, fully understanding that one-third of the time that there would be no resolution of pain and 5% o f the time could be worse than before. The patient was consented and brought to the OR. Description Of Procedure: After informed consent was verified, she was taken back to OR, placed in a supine fashion on the operating table. General anesthesia was given. She was placed in a dorsal li thotomy position. 2 g of Ancef were given. Abdomen, vulva, vagina, and perineum prepped and draped in a sterile fashion. Linda was placed to drain the bladder and VCare placed in the uterus for retra ction. This area was then draped. A 1 cm infraumbilical incision made with a scalpel using the open laparoscopy technique. Fascia was incised. Peritoneum entered sharply. S-retractors placed after the edges were tagged with 0 Vicryl sutures and Shane introduced. Site of entry checked, unremarkab le after insufflation. Upper abdominal surface unremarkable as well. Both left and right upper quad rant were evaluated. No obvious pathology. Omentum appeared to be normal. The patient was placed i n Trendelenburg and the uterus, tubes, and ovaries appeared to be unremarkable and small. On close e xamination, there were bowel adhesions at the left lower quadrant at the IP ligament below the level of the natural attachment. These adhesions were taken down. After the 5 port was placed through the left lower quadrant, then on evaluation there was a thrombosis that was noted. However, no other pa thology was noted around. The ovary completely unremarkable and atrophic. 10 [address] was pl aced and after all the ports were placed and bowel was retracted in the upper abdomen, ureters were v isualized and their courses were not altered. So, started on the IP ligament on the left side to get down. Tube was dissected first and removed. Then, the rest of the ovary was kept intact with the u terus. Round ligament taken down. Broad ligament opened up and taken down to the level of the vesse ls. The vessels were skeletonized. Bladder peritoneum was raised posteriorly. Incision of the stephany toneum carried to expose the VCare cup. Then, on the opposite side, similar dissection was performed taking down the IP. Ovary, tube, these were and removed through the suprapubic incision a nd then the broad ligament opened up. Anterior broad ligament connected to the bladder flap, posteri froy taken down to expose the cup. Then, the vessels were taken down on the right side, later on the left side. Then, circumferential colpotomy with a monopolar hook blade, the specimen was detached a nd pulled out through the vagina. After thorough irrigation and suction, all the pedicles were checked and were hemostatic. PDS was us ed to close the vaginal cuff, 2 simple sutures at both ends and 3 [id number]-dk-ijqsn in the center. The re was good support. Point C was -7. Uterosacral seemed to be attached to the posterior vaginal wall and there were left attached without detachment. This would provide support. After thorough suction and irrigation of the vaginal cuff, all the trocars were removed under direct vision. The port sites were all injected with Marcaine at the beginning and at the end of the case. The fascia at the umbilicus closed with the help of a 0 PDS in a npczqr-je-quzoe fashion and simple 0 Vicryl stitch at the suprapubic fascial incision. All skin incisions were closed with the help of interrupted 4-0 Vicryl sutures. Linda and vaginal occluder sponge were all removed. Instrument, nee dle, and sponge counts were correct at the end of the case. The patient tolerated the procedure well . She was given Ancef after her creatinine was checked and it was 1 three months ago. No history of any kidney dysfunction other than her diabetes. She was recovered from anesthesia in the OR and jordyn en to PACU in a stable condition. She will follow up with me 1 week postop. She will be given [place] for pain. All instructions have been given to the patient and she already has a 1 week postop appoi ntment. JOANNA/KELTON Voice ID: [id number] Report ID: [id number]
== END 2020-01-14 12:03 | disposition home or self-care (01) ==
LOC: OR 06:05
PROVIDERS: ATTEND Obstetrics & Gynecology
PROC: 0UT24ZZ Resection of Bilateral Ovaries, Percutaneous Endoscopic Approach (ICD-10-PCS; 2020-01-14)
PROC: 0UT74ZZ Resection of Bilateral Fallopian Tubes, Percutaneous Endoscopic Approach (ICD-10-PCS; 2020-01-14)
PROC: 0UT94ZZ Resection of Uterus, Percutaneous Endoscopic Approach (ICD-10-PCS; principal; 2020-01-14 07:00)
DX: N95.0 Postmenopausal bleeding (principal); N95.2 Postmenopausal atrophic vaginitis; N94.11 Superficial (introital) dyspareunia; N88.8 Other specified noninflammatory disorders of cervix uteri; I82.890 Acute embolism and thrombosis of other specified veins; N80.0 Endometriosis of uterus; Z20.828 Contact with and (suspected) exposure to other viral communicable diseases; E78.5 Hyperlipidemia, unspecified; I10 Essential (primary) hypertension; Z79.899 Other long term (current) drug therapy; Z85.72 Personal history of non-Hodgkin lymphomas
CPT/HCPCS: 85025; 36415; 86900; 86850; 86901; 88307; 58571; U0002; J2704; J2250; J3010; J1100; J0690; J7120 ×3; J2405; 81003; 81015

== ENCOUNTER 2020-04-15 | Emergency (ER) | payer BC ==
--- OUTSIDE RECORDS SUMMARY | 2020-04-15 22:28 | XMS REPORT | Continuity of Care Document ---
:1950 Author Organization [employer] Care Team Providers Name Role Phone Fantasy Shopper Unavailable Un available Problems Problem Status Onset [...] Bedtime, # 90 cap, 2 Refill(s), Pharmacy: [id number], 162.56, cm, 01/01/20 15:18:00 CDT, Height, 82.273, kg, 01/01/20 15:18:00 CDT, Weight gabapentin 300 300 mg = 1 Active Mische r MG Oral Capsule cap, PO, 018 Neuro Bedtime, # 90 cap, 2 Refill(s), Pharmacy: [facility] [id number] Omeprazole 40 mg, PO, Active [facility] Daily, [...] Comments Source Systolic (mm Hg) 164 01/01/2020 [facility] Diastolic (mm Hg) 88 01/01/2020 [facility] Ne u[facility] Heart Rate 68 01/01/2020 [facility] Neuro Respitory Rate 16 01/01/2020 [facility] Neuro Height 162.56 cm 01/01/2020 [facility] Neuro Weight 82.273 01/01/2020 [facility] Neuro BMI Calculated 31.13 01/01/2020 [facility] Neuro Systolic (mm Hg) 133 10/16/2019 [facility] Diastolic (mm Hg) 87 10/16/2019 [facility] Heart Rate 75 10/16/2019 [facility] Neuro Respitory Rate 16 10/16/2019 [facility] Neuro Height 162.56 cm 10/16/2019 [facility] Neuro Weight 85.909 10/16/2019 [facility] Neuro BMI Calculated 32.51 10/16/2019 [facility] Neuro Systolic (mm Hg) 130 09/17/2019 [facility] Diastolic (mm Hg) 78 09/17/2019 [facility] Heart Rate 70 09/17/2019 [facility] Neuro Respitory Rate 16 09/17/2019 [facility] Neuro Height 162.56 cm 09/17/2019 [facility] Neuro Weight 86.818 09/17/2019 [facility] Neuro BMI Calculated 32.85 09/17/2019 [facility] Neuro Weight 191 01/29/2019 [facility] Height 64.0 01/29/2019 [facility] Heart Rate 67 01/29/2019 [facility] Diastolic (mm Hg) 84 01/29/2019 [facility] Systolic (mm Hg) 146 01/29/2019 [facility] Systolic (mm Hg) 135 [facility] Diastolic (mm Hg) 74 01/01/2019 [facility] Heart Rate 67 01/01/2019 [facility] Neuro Respitory Rate 16 01/01/[address] [facility] Neuro Height 162.56 cm 01/01/2019 [facility] Weight 87.727 01/01/2019 [facility] BMI Calculated 33.2 01/01/2019 [facility] Neuro Heart Rate 66 06/05/2018 [facility] Neuro Respitory Rate 16 06/05/[address] [facility] Neuro Systolic (mm Hg) 133 06/05/2018 [facility] [facility] Diastolic (mm Hg) 84 06/05/2018 [facility]ro Height 162.56 cm 06/05/2018 [facility] Neuro Weight 85.455 06/05/2018 [facility] Neuro BMI Calculated 32.34 06/05/2018 [facility] Neuro Height 165.1 cm 04/24/[address] [facility] Neuro BMI Calculated 31.35 04/24/2018 [facility] Neuro Weight 85.455 04/24/2018 [facility] Neuro Heart Rate 67 04/24/2018 [facility] Neuro Systolic (mm Hg) 161 04/24/2018 [facility] Diastolic (mm Hg) 73 04/24/2018 [facility] Ne uro Encounters Location Location Encounter Encounter Reason Attending ADM [place] Stat us Source Details Type Number For Provider Date Date Visit Outpatient [id number] KAYLNEE 04/24 [facility] [place] [facility] Outpatient [id number] Kaylene 04/24 04/25 [facility] Neurology [facility] /2017 [facility] [place] [facility] Outside [id number] 04/30 05/02 [facility] Neurology [facility] /2017 [facility] [place] Records Outpatient [id number] KAYLENE 06/05 Active [facility] [place] [facility] Outpatient [id number] Kaylene 06/05 06/06 [facility] Neurology [facility] /2018 [facility] [place] Outpatient [id number] Kaylene 01/01 [facility] MNA Outpatient [id number] Kaylene 01/01 01/02 [facility] Neurology [facility] /2018 [facility] [place] Outpatient [id number] Kaylene 09/16 Active [facility] [place] MNA Outpatient [id number] Kaylene 09/16 09/17 [facility] Neurology [facility] /2019 [facility] [place] Outpatient [id number] Kaylene 10/07 [facility]2020 [place] [facility] Ambulatory [id number] Kaylene 10/07 10/07 [facility] /2019 [facility] [place] Outpatient [id number] Kaylene 10/15 [facility]2020 [place] [facility] Outpatient [id number] Kaylene 10/15 10/16 [facility] /2019 [facility] [place] MNA Outside [id number] 11/04 11/06 [facility]2019 [facility] [place] Records Outpatient [id number] Kaylene 11/26 [facility]2019 [place] Outpatient [id number] Kaylene 11/26 [facility]2019 [place] [facility] Ambulatory [id number] Kaylene 11/26 11/26 [facility] /2019 [facility] [place] [facility] Ambulatory [id number] Kaylene 11/26 11/26 [facility] /2019 [facility] [place] Outpatient [id number] Kaylene 12/31 [facility]2019 [place] [facility] Outpatient [id number] Kaylene 12/31 01/01 [facility] /2019 [facility] [place] Outpatient [id number] Kaylene 09/30 [facility] [place] Procedures Procedure Code Date Perfomer Comments Source Cataract surgery [id number] [facility] Neuro Assessment and Plan No Data Provided [...]
--- OUTSIDE RECORDS SUMMARY | 2020-04-15 22:30 | XMS REPORT ---
:1950 Author Organization [facility] Address 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 Active 76236867 Raynaud's phenomenon, esophageal dysfunction, sclerodactyly, telangiectasia) Problem COLLETTE positive R76.8 Active 159490069 Problem Renal N28.9 Active 812762582 insufficiency Problem 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 Active 5503232 Problem Elevated blood I10 Active 61844084 pressure reading in office with diagnosis of hypertension Problem 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 32816833 lymphoma, unspecified body region, unspecified follicular lymphoma type Problem Osteoarthritis of M47.9 Active 380732552 lower back Problem HTN (hypertension) I10 Active 86562124 Problem CKD (chronic N18.3 Active 584374542 kidney disease), stage III Problem Elevated E78.2 Active 274969949 triglycerides with high cholesterol Problem Decreased hearing H91.92 Active 500859207 of left ear Problem Agranulocytosis D70.1 Active 21291331 secondary to cancer chemotherapy Problem 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 Problem Leukopenia, D72.819 Active 68651753 unspecified type Problem Gastroesophageal K21.9 Active 642933610 reflux disease without esophagitis Problem Solitary pulmonary R91.1 Active 855756152 nodule Problem Dyspareunia in N94.10 Active 64445121 female Problem Osteoarthritis of M17.0 Active 898848264 both knees, unspecified osteoarthritis type Problem 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 Active 14491378878437113 patellae of right knee Problem Chondromalacia M22.42 Active 490534010575755 patellae of left knee ALLERGIES No Known Allergies ENCOUNTERS from 1950 to 2020-04-13 Encounter Location Date Provider Diagnosis [facility] [employer] [address] [place], Poonam Trammell HTN (hypertension) I10 ; Family [facility] [address], [place] [address] disease withou t esophagitis K21 .9 ; Hyperlipidemia E78.5 and Other constipat ion K59.09 IMMUNIZATIONS Vaccine Route Administration Date Status FluAD IM Intramuscular Jan 24, 2019 Administered SOCIAL HISTORY Tobacco Use: Social History Observation Description Date Details (start date - stop date) Never Smoker Sex Assigned At : Social History Observation Description Sex Assigned At Unknown Alcohol Screen Question Answer Notes Did you have a drink containing alcohol in the past year? No Points 0 Interpretation Negative Tobacco Use/Smoking Question Answer Notes Are you a never smoker Additional Findings: Tobacco Non-User Current non-smoker REASON FOR REFERRAL No Information VITAL SIGNS No information MEDICATIONS Medication SIG (Take, Route, Notes Start Date End Date Status Frequency, Duration) Losartan Potassium 50 MG TAKE 1 TABLET BY Active MOUTH EVERY DAY Orally Once a day for 90 days Rosuvastatin Calcium 10 MG TAKE 1 TABLET BY Unknown MOUTH EVERY DAY for 90 Tizanidine HCl 2 mg 1 tablet as needed Active Orally at bedtime for 30 Yuvafem Not-Taking Rosuvastatin Calcium 10 MG 1 tablet Orally Active Once a day for 90 days Shingrix Not-Taking Cozaar 100 MG 1 tablet Orally Active Once a day for 90 days Vitamin A 8000 UNIT 3 capsules Orally Not-Taking Once a day Linzess 145 mcg one capsule orally A ctive 30 minutes before first meal for 90 days Fish Oil 1200 MG 1 capsule Orally Ac tive Once a day MethylPREDNISolone Not-Ta fidel Diclofenac Sodium 3 % 2 gram application September, Not-Taking to affected area Transdermal Twice a day for 30 day(s) Vitamin D 2000 UNIT 1 tablet Orally Active Once a day Nitrofurantoin Monohyd No t-Taking Macro Vitamin E 400 UNIT 1 capsule Orally Active Once a day Carvedilol 25 MG 1 tablet Orally Act tarah twice a day for 90 days Carvedilol 25 MG TAKE 1 TABLET BY Un known MOUTH TWICE DAILY for 90 [place] 3 340 MG 1 capsule Orally Acti ve Once a day Azelastine HCl Not-Taking Neurontin 300 MG 1 capsule before Ac tive bedtime Orally Once a day for 90 days Losartan Potassium 50 MG TAKE 1 TABLET BY Unknown MOUTH EVERY DAY for 90 ProAir HFA 108 (90 Base) 2 puffs as needed Not-Taking MCG/ACT Inhalation every 6 hrs Fluticasone Propionate No t-Taking Omeprazole 40 MG 1 capsule Orally Ac tive Once a day for 90 days PROCEDURES No Information RESULTS No Results REASON FOR VISIT RX Refills MEDICAL (GENERAL) HISTORY Type Description Date Medical History HTN (hypertension) Medical History Hyperlipidemia Medical History Follicular lymphoma, unspecified body re gion, unspecified follicular lymphoma type Medical History Gastroesophageal reflux disease without esophagitis Medical History Herpes labialis Medical History Screening for osteoporosis Medical History Solitary pulmonary nodule Medical History shingles Surgical History B/L carpal tunnel 1995 Surgical History tubial ligation 1982 Surgical History right cataract 2015 Surgical History left cataract 2017 Surgical History hysterectomy 01/2020 Hospitalization History No Hospitalization history informati on Goals Section No Information Health Concerns No Information MEDICAL EQUIPMENT No Information MENTAL STATUS No Information FUNCTIONAL STATUS No Information ASSESSMENTS Encounter Date Diagnosis Assessment Notes Treatment Notes Treatm ent Clinical Notes Mar, HTN (hypertension) (ICD-10 - I10) Mar, Gastroesophageal reflux disease without esophagitis (ICD-10 - K21.9) Mar, Hyperlipidemia (ICD-10 - E78.5) Mar, Other constipation (ICD-10 - K59.09) PLAN OF TREATMENT Medication Medication Name Sig Start Date Stop Date Omeprazole 40 MG 1 capsule Orally Once a day for 90 days Carvedilol 25 MG 1 tablet Orally twice a day for 90 days Losartan Potassium 50 MG TAKE 1 TABLET BY MOUTH EVERY DAY Orally Once a day for 90 days Tizanidine HCl 2 mg 1 tablet as needed Orally at bedtime for 30 Rosuvastatin Calcium 10 MG 1 tablet Orally Once a day for 90 days Cozaar 100 MG 1 tablet Orally Once a day for 90 days Neurontin 300 MG 1 capsule before bedtime Orally Once a day for 90 days Linzess 145 mcg one capsule orally 30 minutes before first meal for 90 days Next Appt Details Provider Name:Poonam Trammell, 2020-06-02 09:1 5:00 AM, [address], [place], [address], Provider Name:Poonam Trammell, 2020-06-09 09:4 0:00 AM, [address], [place], [address], Insurance Providers Payer Name Payer Payer Insured Name Patient Coverage Covera ge End Address Phone Relationship to Start Date Kadeem e Insured [employer] [phone] [id number] and Liban [id number] [phone] [id number] [facility] [id number] [phone]
--- OUTSIDE RECORDS SUMMARY | 2020-04-15 22:30 | XMS REPORT | Continuity of Care Document ---
:1950 Author Organization [facility] t Address [address] [place] [address] [place] [address] Care Team Providers Name Role Phone Wing SOLANO Primary Care Physician Unavailable Wing SOLANO Attending Clinician Unavailable BALDO Attending Clinician Unavailable Audiology Attending Clinician Unavailable Piotr GONG Attending Clinician Perry Kim Attending Clinician Wing Solano MD Attending Clinician Jairo Woods APN Attending Clinician Tenzin DENIS, C Attending Clinician Unavailable Molly COAL BRIQUETTE MACHINE OPERATOR, N Attending Clinician Payers Payer Name Policy Type Policy Number Effective Date Expiration Date Maxine booker BCBS PPO POS OUT [id number] 2019 OF STATE GENERIC 00:00:00 Problems Condition [...] 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 female [...] 3-10 Anderso neuralgia neuralgia 00:00: n 00 Chest pain Problem Resolve 2020-01-04 Memoria (finding) d 00:36:40 l Chest Donald pain (finding) Resolved Problem 01/04/2020 [facility] Hyperlipid Problem Active 2020-01-04 M emoria emia 00:36:40 l (disorder) Adalberto n Hyperlipid emia (disorder) Active Problem 01/04/2020 [facility] Lumbar Problem Active 2020-01-04 Memor ia radiculopa 00:36:40 l thy Lumbar [place] (disorder) radiculopa thy (disorder) Active Problem 01/04/2020 [facility] Simple Problem Active 2020-01-04 Memor ia obesity 00:36:40 l (disorder) Simple Herm wali obesity (disorder) Active Problem 01/04/2020 [facility] 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 Donald (finding) Anti-nucle ar factor positive (finding) Active [...] Mem oria insufficie 02:45:54 l ncy Renal [place] insufficie ncy Active Diagnosis 10/02/2019 [facility] Osteoarthr Diagnosis Active 2019-10-02 Memoria itis 02:45:54 l Donald Osteoarthr itis Active Diagnosis 10/02[facility] [...] d Active Problem 10/02/2019 [facility] Lumbar Diagnosis Active 2019-10-02 Mem oria radiculopa 02:45:54 l thy Lumbar Donald radiculopa thy Active Diagnosis 10/02/2019 [facility] Allergies, Adverse Reactions, Alerts Allergy Allergy Status Severity Reaction(s) Onset Inactive Treating Comm ents Source Name Type Date Date Clinician NCarlosA. N.AmirahA. Active Info Not Bryan shin Available 5-19 l 00:00: [place] 00 No Known No Known Active Memori a Medicati Medicati l on on Donald Allergie Allergie s s Social History Social Habit Start Date Stop Date Quantity Comments Source Sex Assigned At MD Rueda on Tobacco use and 2018-08-09 2018-08-09 Never used MD Rueda on exposure 00:00:00 00:00:00 Alcohol intake 2018-08-09 2018-08-09 Current MD Jorge cool 00:00:00 00:00:00 non-drinker of alcohol (finding) Smoking Status Start Date Stop Date Source Never smoker MD Gilmore Medications Ordered Filled Start Stop Current Ordering Indication Dosage Frequency Signature Comments Components Source Medication Medication Date Date Medication? Clinician (SIG) Name Name gabapentin Yes 300 mg = 1 M emoria 300 MG Oral 8-19 cap, PO, l Capsule 20:58: Bedtime, # Herm wali 00 90 cap, 2 Refill(s), Pharmacy: [id number], 162.56, cm, 01/01/20 15:18:00 CDT, Height, 82.273, kg, 01/01/20 15:18:00 CDT, Weight Linzess Linzess 2020- No Na Trammell one [facility] 12-08 [facility] l [facility] Clinics rosuvastati Yes 10mg Take 10 mg MD n (CRESTOR) 6-23 by mouth Kelvin rso 10 mg 19:01: daily. n tablet 56 Last dose: 12/15/14 losartan 2019-0 Yes 50mg Take 50 mg MD (COZAAR) [...] Take 2,000 MD gwen, 6-23 Units by Anderso vitamin D3, 18:05: mouth n 1,000 units 09 daily. tablet DOCUSATE 2020-0 Yes 1{capsu Take 1 MD SODIUM 6-23 le} capsule by AndXMS Penvisiono (COLACE 18:05: mouth as n ORAL) 09 needed. gabapentin 2020-0 2020- No 300mg Take 300 M D (NEURONTIN) 6-23 06-23 mg by Mohit o 300 mg 18:04: 00:00 mouth n capsule 22 :00 every evening. Rosuvastati 2020-0 Yes Bhavna 1 tablet Memoria n Calcium 5-20 Vo l 02:45: 54 Valacyclovi 2020-0 Yes Bhavna 1 tablet Memoria r HCl 5-20 Vo l 02:45: 54 Vitamin D3 2020-0 Yes Bhavna 1 capsule Memoria 5-20 Vo l 02:45: 54 Vitamin C 2020-0 Yes Bhavna 1 tablet Memoria 5-20 Vo l 02:45: 54 Losartan 2020-0 Yes Bhavna 1 tablet Memoria Potassium 5-20 Vo l 02:45: 54 Super B 2020-0 Yes Bhavna not [...] Bryan shin 9-18 Vo defined l 02:45: Donald 58 Azelastine 2019-0 Yes Bhavna 1 puff in Memoria HCl 9-18 Vo each l 02:45: nostril Donald 58 Carvedilol 2019-0 Yes Bhavna 2 tablets Memoria 9-18 Vo l 02:45: Donald Parker Yuvafem 2019-0 Yes Bhavna 1 tablet Memoria 9-18 Vo l 02:45: Donald 58 Diclofenac Diclofenac 2019-0 Yes Na Trammell [address] [facility] Sodium Sodium 5-10 applicatio [facility] - 00:[facility]: n to Memoria 00 affected l area Outpati ent Clinics fluticasone 2018- 2020- No 1{spray Inhale 1 MD propionate 07-25 } spray into An derso (FLONASE) 00:00: 00:00 each n 50 00 :00 nostril mcg/spray twice nasal spray daily. azelastine 2018- 2020- No 1{spray Apply 1 MD (ASTELIN) 06-27 } spray to Slim so 137 00:00: 00:00 each nare n mcg/spray 00 :00 twice nasal spray daily. gabapentin 2017-05 Yes 300 mg = 1 M emoria 300 MG Oral 2-11 cap, PO, l Capsule 18:03: Bedtime, # Herm wali 00 90 cap, 2 Refill(s), Pharmacy: [id number] Omeprazole 2017-05 Yes 40 mg, PO, M emoria 2-11 Daily, 0 l 16:42: Refill(s) rosuvastati 2017-05 Yes 10 mg, PO, Memoria n 2-11 Daily, 0 l 16:42: Refill(s) Losartan 2017-05 Yes 50 mg, PO, Mem oria 2-11 Daily, 0 l 16:42: Refill(s) valacyclovi 2017-05 Yes 500 mg, Mem oria r 2-11 PO, Daily, l 16:42: # 21 tab, 0 Refill(s) carvedilol 2017-05 Yes 25 mg, PO, M emoria 2-11 Daily, 0 l 16:42: Refill(s) valACYclovi Yes Follicular 500mg Take 1 MD [...] defined [facility] Elim 3 Elim 3 Yes Na Trammell 1 capsule C [...] [facility] ProAir HFA ProAir HFA Yes Na Trammell [address] [facility] Azelastine Azelastine Yes Na Trammell not [facility] HCl HCl defined [facility] Vitamin D Vitamin D Yes Na Trammell [address] [facility] Vitamin E Vitamin E Yes Na Trammell [address] [facility] Immunizations Ordered Filled Immunization Date Status Comments [facility] e Immunization Name Name FluAD FluAD 2019-01-[address] [facility] Influenza (IM) 2017-02-01 Completed MD Jorge cool Preservative Free 00:00:00 Vital Signs Vital Name Observation Time Observation Value Comments Source WEIGHT 2019-11-05 00:00:00 85.1 kg WEIGHT 2019-11-05 00:00:00 85.1 kg WEIGHT 2019-11-05 00:00:00 85.1 kg WEIGHT 2019-11-05 00:00:00 85.1 kg Systolic (mm Hg) 2020-01-01 20:18:00 Bryan rial Donald Diastolic (mm Hg) 2020-01-01 20:18:00 [facility] orial Donald Heart Rate 2020-01-01 20:18:00 [facility] Respitory Rate 2020-01-01 20:18:00 Memori al [place] Height 2020-01-01 20:18:00 162.56 cm [facility] Donald Weight 2020-01-01 20:18:00 [facility] Donald BMI Calculated 2020-01-01 20:18:00 Memori al Donald Systolic blood 2019-11-05 18:59:00 142 mm[Hg] pressure Diastolic blood 2019-11-05 18:59:00 83 mm[Hg] MD Londono derson pressure Heart rate 2019-11-05 18:59:00 65 /min MD Slim wade Body temperature 2019-11-05 18:59:00 36.78 Mitzy MD Gill nderson Respiratory rate 2019-11-05 18:59:00 19 /min MD Gill nderson Body weight 2019-11-05 18:59:00 85.1 kg MD Slim wade BMI 2019-11-05 18:59:00 32.43 kg/m2 MD Slim wade Oxygen saturation in 2019-11-05 18:59:00 99 /min Mando Arterial blood by Pulse oximetry Systolic (mm Hg) 2019-10-16 18:19:00 Bryan rial Donald Diastolic (mm Hg) 2019-10-16 18:19:00 Mem orial Donald Heart Rate 2019-10-16 18:19:00 [facility] Donald Respitory Rate 2019-10-16 18:19:00 Memori al Donald Height 2019-10-16 18:19:00 162.56 cm [facility] Donald Weight 2019-10-16 18:19:00 [facility] Donald BMI Calculated 2019-10-16 18:19:00 Memori al [place] Systolic (mm Hg) 2019-09-17 16:02:00 Bryan rial [place] Diastolic (mm Hg) 2019-09-17 16:02:00 Mem orial [place] Heart Rate 2019-09-17 16:02:00 [facility] [place] Respitory Rate 2019-09-17 16:02:00 Memori al Donald Height 2019-09-17 16:02:00 162.56 cm [facility] Donald Weight 2019-09-17 16:02:00 [facility] Donald BMI Calculated 2019-09-17 16:02:00 Memori al [place] Weight 2019-01-29 15:30:00 [facility] [place] Height 2019-01-29 15:30:00 [facility] [place] Heart Rate 2019-01-29 15:30:00 [facility] [place] Diastolic (mm Hg) 2019-01-29 15:30:00 Mem orial Donald Systolic (mm Hg) 2019-01-29 15:30:00 Bryan rial Donald Systolic (mm Hg) 2019-01-01 15:05:00 Bryan rial Donald Diastolic (mm Hg) 2019-01-01 15:05:00 Mem orial [place] Heart Rate 2019-01-01 15:05:00 [facility] [place] Respitory Rate 2019-01-01 15:05:00 Memori al Donald Height 2019-01-01 15:05:00 162.56 cm [facility] [place] Weight 2019-01-01 15:05:00 [facility] Donald BMI Calculated 2019-01-01 15:05:00 Memori al Donald Heart Rate 2018-06-05 16:31:00 [facility] [place] Respitory Rate 2018-06-05 16:31:00 Memori al Donald Systolic (mm Hg) 2018-06-05 16:31:00 Bryan rial [place] Diastolic (mm Hg) 2018-06-05 16:31:00 Mem orial Donald Height 2018-06-05 16:31:00 162.56 cm [facility] [place] Weight 2018-06-05 16:31:00 [facility] Donald BMI Calculated 2018-06-05 16:31:00 Memori al [place] Height 2018-04-24 16:40:00 165.1 cm [facility] [place] BMI Calculated 2018-04-24 16:40:00 Memori al [place] Weight 2018-04-24 16:40:00 [facility] [place] Heart Rate 2018-04-24 16:40:00 [facility] Donald Systolic (mm Hg) 2018-04-24 16:40:00 Bryan rial Donald Diastolic (mm Hg) 2018-04-24 16:40:00 Mem orial [place] Procedures Procedure Date / Time Performing Clinician Source Performed CT CHEST ABDOMEN PELVIS W 2019-11-04 21:14:06 Suyapa Solano MD CONTRAST LYMPHOMA COMPLETE BLOOD COUNT W/ 2019-11-04 18:21:00 Suyapa Solano MD DIFFERENTIAL COMPREHENSIVE METABOLIC 2019-11-04 18:21:00 Suyapa Solano MD PANEL LACTATE DEHYDROGENASE 2019-11-04 18:21:00 Suyapa Solano MD THYROID STIMULATING HORMONE 2019-11-04 18:21:00 NastoupilGretchen MD VITAMIN D 25 HYDROXY LEVEL 2019-11-04 18:21:00 JeantoupilKhurram MD Results CBC 2019-11-04 18:21:00 Nastoupil, Suyapa Dimas MD And erson MANUAL DIFFERENTIAL 2019-11-04 18:21:00 JeantopatyilSuyapa MD GLUCOSE LEVEL 2019-11-04 18:21:00 Nastoupil, Suyapa Dimas MD And erson ELECTROLYTE PANEL 2019-11-04 18:21:00 Nastoupil, Suyapa salazar SERUM CREATININE 2019-11-04 18:21:00 Jeantoupil, Suyapa henderson .GLOMERULAR FILTRATION RATE 2019-11-04 18:21:00 Gretchen Solano MD CALCIUM LEVEL TOTAL 2019-11-04 18:21:00 JeantoupilSuyapa MD ALBUMIN LEVEL 2019-11-04 18:21:00 Nastoupil, Suyapa Dimas MD And erson ALKALINE PHOSPHATASE 2019-11-04 18:21:00 NastoupilSuyapa ALANINE AMINOTRANSFERASE 2019-11-04 18:21:00 NastoupilSuyapa MD ASPARTATE AMINOTRANSFERASE 2019-11-04 18:21:00 JaguarupilKhurram MD TOTAL PROTEIN 2019-11-04 18:21:00 Jeantoupil, Suyapa Dimas MD And ersdonna FRACTIONATED BILIRUBIN 2019-11-04 18:21:00 JeantoupilSuyapa MD BLOOD UREA NITROGEN 2019-11-04 18:21:00 JeantoupilSuyapa MD Cataract surgery [facility] Encounters Start End Encounter Admission Attending Care Care Encounter Source Date/Time Date/Time Type Type Clinicians Facility Department ID 2020-11-02 2020-11-02 Outpatient MARGI SOLANO MDA MDA [id number] 00:00:00 00:00:00 SUYAPA cool 2020-11-01 2020-11-01 Outpatient MARGI BLAND MDA MDA [id number] 00:00:00 00:00:00 ELMER cool 2020-11-01 2020-11-01 Outpatient MARGI BLAND MDA [facility] [id number] MD 00:00:00 00:00:00 ELMER bazan travon 2020-04-13 2020-04-13 Outpatient [facility] [id number] [facility] 2020-03-24 2020-03-24 Outpatient [facility] [id number] [facility] 2020-03-10 2020-03-10 Outpatient [facility] [id number] [facility] 2020-02-18 2020-02-18 Ancillary Audiology, [id number] 7 [id number] 14:25:17 15:10:17 Visit [facility] [id number] [facility] [id number] Primary & 141 Specialty Care 2020-02-18 2020-02-18 Office [address].840.114 [id number] 14:26:35 14:41:35 Visit [facility] [id number] [place] [id number] [facility] [id number] Primary & 144 Specialty Care 2020-01-01 2020-01-01 Outpatient FELIPE Kim [id number] 15:15:00 23:59:59 Brennan Perry 2019-12-09 2019-12-09 [facility] [id number] 10:20:00 10:20:00 t [facility] [employer] [facility] Medicine Outpati ent Clinics 2019-11-28 2019-11-28 [facility] [id number] 16:48:00 16:48:00 t [facility] - [facility] Family Medicine l Medicine Outpati ent Clinics 2019-11-27 2019-11-27 Outpatient FELIPE Kim [id number] 13:45:00 13:45:00 Brennan [facility] 2019-11-27 2019-11-27 Outpatient SANGEETA KimMISCHER MHMISCHER [id number] 13:45:00 13:45:00 Brennan 07 Perry 2019-11-05 2019-11-06 Outpatient MHMISCHER MHMISCHER [id number] 13:28:25 23:59:59 2019-11-05 2019-11-05 Outpatient EL NASTOUPIL, MDA MDA [id number] 13:42:41 14:53:18 SUYAPA cool 2019-11-05 2019-11-05 Outpatient EL NASTOUPIL, MDA MDA [id number] 12:11:16 14:47:39 SUYAPA cool 2019-11-04 2019-11-04 Outpatient EL NASTOUPIL, MDA MDA [id number] 14:57:52 23:59:00 SUYAPA cool 2019-11-04 2019-11-04 Outpatient EL NASTOUPIL, MDA MDA [id number] 13:40:59 14:56:00 SUYAPA cool 2019-11-04 2019-11-04 Outpatient EL NASTOUPIL, MDA MDA [id number] 13:09:24 13:39:00 SUYAPA cool 2019-10-24 2019-10-24 [facility] [id number] 11:22:00 11:22:00 [employer] [place] [email or web address] Medicine Outpati ent Clinics 2019-10-21 2019-10-21 [facility] [id number] 10:05:00 10:05:00 t [facility] Medicine Outpati ent Clinics 2019-10-16 2019-10-16 Outpatient SANGEETA KimMISCHER MHMISCHER [id number] 13:00:00 23:59:59 Brennan Perry 2019-10-08 2019-10-08 Outpatient JulioSANGEETAMISCHER MHMISCHER [id number] 14:15:00 14:15:00 Brennan 04 Perry 2019-10-01 2019-10-01 Outpatient PRL - PRL - [id number] [facility]inic 11:30:00 11:30:00 Rheumatol Rheumatolog alWorks ogy y [facility] 2019-09-17 2019-09-17 [facility] [id number] 10:45:00 23:59:59 Brennan Krista Perry 2019-09-09 2019-09-09 [facility] [id number] 11:00:00 11:00:00 t [place] Exel[employer] s [employer]ola[employer] [facility] ent [facility] 2019-06-10 2019-06-10 [facility] [id number] 10:20:00 10:20:00 t [place] [employer] [facility] ent [facility] 2019-05-23 2019-05-23 [facility] [id number] 16:57:00 16:57:00 t [employer] [facility] ent [facility] 2019-05-02 2019-05-02 [facility] [id number] 11:00:00 11:00:00 t [facility] ent [facility] 2019-03-12 2019-03-12 [facility] [id number] 16:38:00 16:38:00 t [employer] [facility] ent [facility] 2019-03-04 2019-03-04 [facility] [id number] 08:00:00 08:00:00 t [facility] ent Clinics 2019-02-11 2019-02-11 [facility] [id number] 15:20:00 15:20:00 t [employer] [facility] ent Clinics 2019-01-29 2019-01-29 Outpatient PRL - PRL - [id number] [facility]Clinic 10:30:00 10:30:00 Rheumatol Rheumatolog alWorks ogleydi y [facility] 2019-01-24 2019-01-24 [facility] [id number] 08:00:00 08:00:00 [facility] [employer] [facility] 2019-01-01 2019-01-01 Outpatient FELIPE Kim ANKITSCHER [id number] 10:00:00 23:59:59 Brennan 02 Perry 2019-01-01 2019-01-01 [facility] [id number] 08:15:00 08:15:00 [facility] [employer] [facility] Clin[facility] 2018-08-17 2018-08-17 [facility] [id number] 11:57:00 11:57:00 [place] [employer] [facility] ent [facility] 2018-08-10 2018-08-10 Outpatient EL NASTOUPIL, MDA MDA [id number] 10:52:52 23:59:00 SUYAPA cool 2018-06-13 2018-06-13 Outpatient Maximiliano Vierat [id number] 14:30:00 14:30:00 [facility] [employer] [facility] ent [facility] 2018-06-05 2018-06-05 Outpatient ZURDO KimSCHJAZZY ANKITSCHJAZZY [id number] 10:45:00 23:59:59 Brennan 01 Perry 2018-04-30 2018-05-01 Outpatient MISCHJAZZY RENNERSCHER [id number] 10:01:00 23:59:59 00 2018-04-24 2018-04-24 Outpatient ZURDO KimSCHJAZZY ANKITSCHER [id number] 11:30:00 23:59:59 Brennan 00 Perry Results Test Description Test Time Test Comments Results Result Comments Source Vitamin D 25OH 2019-11-05 14:51:53 Test Item Value Reference Range Interpretation Comme nts Vitamin D 25 OH (test code = 40 ng/mL 30-100 Reference Range: Deficiency: 8018) <10 ng/mLInsuff iciency: 10-29 ng/mLSufficienc y: 30-100 ng/mLPotential toxicity: >100 ng/mL MD GilmoreCT Chest Abdomen Pelvis with Contrast [id number] 21:58:441. Resolution of right T3 paravertebral soft [...] mm right upper lobe spiculated nodule.MD GilmoreFractionated [id number] 19:34:50 Test Item Value Reference Range Interpretation [...] 0-0.9 code = 5095) MD GilmoreGlomerular Filtration [id number] 19:34:48 Test Item Value Reference Range Interpretation [...] According to th e National Kidney Foundation's dney Disease Outcome Quality Initiat tarah (KDOQI) [...] According to th e National Kidney Foundation's dney Disease Outcome Quality Initiat tarah (KDOQI) [...] <15 Lab Interpretation Abnormal (test code = 07104-7) MD GilmoreTotal [id number] 19:34:47 Test Item Value Reference Range Interpretation Comments Total Protein (test code = 7649) 7.5 g/dL 6.4-8.3 MD [id number] 19:34:46 Test Item Value Reference Range Interpretation [...] conjunction wit h clinical context. MD GilmoreCalcium [id number] 19:34:45 Test Item Value Reference Range Interpretation Comments Calcium Lvl (test code = 5258) 9.4 mg/dL 8.4-10.2 MD GilmoreAlkaline [id number] 19:34:44 Test Item Value Reference Range Interpretation Comments Alk Phos (test code = 4768) 101 U/L 35-104 MD [id number] 19:34:43 Test Item Value Reference Range Interpretation Comments ALT (test code = 4705) 18 U/L <=33 MD GilmoreAlbumin [id number] 19:34:42 Test Item Value Reference Range Interpretation Comments Albumin Lvl (test code = 4763) 4.2 3.5- 5.2 gm/dL MD [id number] 19:34:41 Test Item Value Reference Range Interpretation Comments BUN (test code = 5055) 29 mg/dL 6-23 H Lab Interpretation (test code = Abnormal 94664-0) MD GilmoreElectrolyte [id number] 19:34:40 Test Item Value Reference Range Interpretation Comments Sodium Lvl (test code = 7355) 135 136- 145 mEq/L L Potassium Lvl (test code = 6854) 4.3 3.5- 5.1 mEq/L Chloride (test code = 5279) 101 98- 107 mEq/L CO2 (test code = 5227) 25 22- 29 mEq/L Anion Gap (test code = 9325) 9 4- 14 mEq/L Lab Interpretation (test code = Abnormal 11125-0) MD GilmoreAspartate [id number] 19:34:39 Test Item Value Reference Range Interpretation Comments AST (test code = 4731) 20 U/L <=32 MD GilmoreGlucose [id number] 19:34:38 Test Item Value Reference Range Interpretation Comments Glucose Level (test 92 mg/dL 70-99 Referenc e range is valid code = 5699) for fasting spe cimens only. Guideline s established by the [place] [employer] claudette delines (Standards of M edical Care in Diabete s 2016. Diabetes Care 2 016; 39: S13-22) are gail t a fasting glucose of greater than or equal to 126 mg/dL or a random glucose greater than or equal to 200 mg /dL with symptoms, that are confirmed by re peat testing on a di ffere day, meet the betty mason for diabetes me madeline. MD [id number] 19:34:37 Test Item Value Reference Range Interpretation Comments TSH (test code = 7578) 2.66 0.27- 4.20 mcunit/mL MD Gilmore.Serum [id number] 19:34:35 Test Item Value Reference Range Interpretation Comments Creatinine (test code = 5399) 1.19 mg/dL 0.51-0.95 H Lab Interpretation (test code = Abnormal 92637-1) MD G[id number] 18:47:17 Test Item Value Reference Range Interpretation Comments Neutrophil % (test code = 74.9 % 42-66 H 46599-8) Lymphocyte % (test code = 16.3 % 24-44 L 737-7) Monocyte % (test code = 8.1 % 2-7 H 744-3) Eosinophil % (test code = 0.0 % 1-4 L 713-8) Basophil % (test code = 0.3 % 0-1 707-0) IGRE % (test code = 0.4 % 0-0.4 IGRE % c ount 70011-4) includes Metamyelocytes, Myelocytes, and Promyelocytes. Neutrophil Abs (test code 5.20 K/uL 1.7-7.3 = 753-4) Lymphocyte Abs (test code 1.13 K/uL 1-4.8 = 732-8) Monocyte Abs (test code = 0.56 K/uL 0.08-0.7 743-5) Eosinophil Abs (test code 0.00 K/uL 0.04-0.4 L = 712-0) Basophil Abs (test code = 0.02 K/uL 0-0.1 705-4) IG Abs (test code = 0.03 K/uL 0-0.04 84495-7) Lab Interpretation (test Abnormal code = 12473-8) MD Gilmore.[id number] 18:47:12 Test Item Value Reference Range Interpretation [...] RDW-SD (test code = 45.9 fL 35.1-46.3 36546-4) RDW-CV (test code = 13.4 % 12-15.5 [...] differential. Lab Interpretation Abnormal (test code = 45758-1) MD Gilmore
--- OUTSIDE RECORDS SUMMARY | 2020-04-15 22:30 | XMS REPORT ---
:1950 Author Organization [facility] Address [address] 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 Active 68776381 Raynaud's phenomenon, esophageal dysfunction, sclerodactyly, telangiectasia) Problem COLLETTE positive R76.8 Active 822528152 Problem Renal N28.9 Active 999716980 insufficiency Problem 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 Active 1337570 Problem Elevated blood I10 Active 72598690 pressure reading in office with diagnosis of hypertension Problem 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 31279391 lymphoma, unspecified body region, unspecified follicular lymphoma type Problem Osteoarthritis of M47.9 Active 757051208 lower back Problem HTN (hypertension) I10 Active 69476038 Problem CKD (chronic N18.3 Active 912980612 kidney disease), stage III Problem Elevated E78.2 Active 599661371 triglycerides with high cholesterol Problem Decreased hearing 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 Active 819021450 of left ear Problem Agranulocytosis D70.1 Active 87258708 secondary to cancer chemotherapy Problem 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 Problem Leukopenia, D72.819 Active 00786082 unspecified type Problem Gastroesophageal K21.9 Active 350614618 reflux disease without esophagitis Problem Solitary pulmonary R91.1 Active 264270259 nodule Problem Dyspareunia in N94.10 Active 91129419 female Problem Osteoarthritis of M17.0 Active 045950427 both knees, unspecified osteoarthritis type Problem 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 Active [id number] patellae of right knee Problem Chondromalacia M22.42 Active [id number] patellae of left knee ALLERGIES No Known Allergies ENCOUNTERS from 1950 to 2020-04-01 Encounter Location Date Provider Diagnosis [facility] [address] [place], Poonam Trammell HTN (hypertension) I10 ; Family [facility] [address], Hyperli pidemia E78.5 ; [place] [address] Gastroesophage al reflux disease without esophagitis K21 .9 ; CKD (chronic kidney disease), stage III N18.3 ; Elevated fastin g glucose R73.01 ; COLLETTE po sitive R76.8 ; Leukope dion, unspecified typ e D72.819 ; Elevated seru m globulin level R77.1 and History of follicular l ymphoma Z85.72 IMMUNIZATIONS Vaccine Route Administration Date Status FluAD [...] REASON FOR REFERRAL No Information VITAL SIGNS Height 64.00 in Mar, Weight 181.8 lbs Mar, Temperature 97.2 degrees Fahrenheit Mar, BMI 31.20 kg/m2 Mar, Oximetry 96 % Mar, Respiratory Rate 16 /min Mar, Blood pressure systolic 125 mm Hg Mar, Blood pressure diastolic 59 mm Hg Mar, MEDICATIONS Medication SIG (Take, Route, Notes Start Date End Date Status Frequency, Duration) Azelastine HCl Not-Taking Carvedilol 25 MG 1 tablet Orally Act tarah twice a day for 90 days Vitamin D 2000 UNIT 1 tablet Orally Active Once a day Cozaar 100 MG 1 tablet Orally Active Once a day for 30 day(s) Losartan Potassium 50 MG TAKE 1 TABLET BY Unknown MOUTH EVERY DAY for 90 Fluticasone Propionate No t-Taking Carvedilol 25 MG TAKE 1 TABLET BY Un known MOUTH TWICE DAILY for 90 MethylPREDNISolone Not-Ta fidel Losartan Potassium 50 MG TAKE 1 TABLET BY Active MOUTH EVERY DAY for 90 Diclofenac Sodium 3 % 2 gram application September, Not-Taking to affected area Transdermal Twice a day for 30 day(s) Fish Oil 1200 MG 1 capsule Orally Ac tive Once a day ProAir HFA 108 (90 Base) 2 puffs as needed Not-Taking MCG/ACT Inhalation every 6 hrs Shingrix Not-Taking [place] 3 340 MG 1 capsule Orally Acti ve Once a day Neurontin 300 MG 1 capsule before Ac tive bedtime Orally Once a day Tizanidine HCl 2 mg 1 tablet as needed Active Orally at bedtime for 30 Rosuvastatin Calcium 10 MG TAKE 1 TABLET BY Unknown MOUTH EVERY DAY for 90 Vitamin E 400 UNIT 1 capsule Orally Active Once a day Omeprazole 40 MG 1 capsule Orally Ac tive Once a day for 90 days Yuvafem Not-Taking Rosuvastatin Calcium 10 MG 1 tablet Orally Active Once a day for 90 days Linzess 145 mcg one capsule orally A ctive 30 minutes before first meal for 90 days Vitamin A 8000 UNIT 3 capsules Orally Not-Taking Once a day Nitrofurantoin Monohyd No t-Taking Macro PROCEDURES No Information RESULTS No Results REASON FOR VISIT 2 wk f/u LOBBY MEDICAL (GENERAL) HISTORY Type Description Date Medical [...] No Information ASSESSMENTS Encounter Date Diagnosis Assessment Treatment Notes Treatment Notes Clinical Notes Mar, HTN (hypertension) Maintian a low (ICD-10 - I10) salt DASH diet, exercise, weight loss and decrease stress recommended. Keep BP log and will review next visit. If blood pressure consistently above 140/90 return to clinic for adjustment of meds. Try to quit smoking if you currently smoke. Decrease caffeine intake if possible. --continue on carvedilol 25mg po bid controlled B P -- increase losartan 50 to 100mg daily Mar, Hyperlipidemia low fat diet, (ICD-10 - E78.5) decrease fast food and fried foods. Increase fruit and vegetable intake. exercise as tolerated 30minutes per day at least 3 days a week. May take fish oil 1000mg twice daily to help increase good cholesterol (HDL). Mar, Gastroesophageal Gerd- avoid reflux disease trigger foods without esophagitis including spicy, (ICD-10 - K21.9) oily, carbonated drinks, citrus. Do not lay down immediately after eating-wait at least 2 hours, elevate pillow. Eat smaller meals and weight loss recommended for obese patients. Avoid wearing tight clothing. may take TUMs at bedtime. Mar, CKD (chronic kidney will monitor disease), stage III kidney function. - (ICD-10 - N18.3) Avoid NSAIDs ( such as ibuprofen, motrin, aleive) - Hydrate your kidneys by drinking plenty of water. GFR 50s stable Mar, Elevated fasting glucose (ICD-10 - R73.01) Mar, COLLETTE positive (ICD-10 - R76.8) Mar, Leukopenia, unspecified type (ICD-10 - D72.819) Mar, Elevated serum globulin level (ICD-10 - R77.1) Mar, History of follicular contin ue f/u with lymphoma (ICD-10 - heme/onc as Z85.72) scheduled routinely for monitoring. Mar, Other -- Medication time was spent reviewed and counseling and updated. -- coordinating ca re Dietary and including but n ot Lifestyle limited to modifications discussion of addressed test results, regarding diet, diagnostic o r exercise and treatment weight management. recommend ations, -- Treatment prognosis, risk s options, risks and and benef its of benefits, side management effects reviewed options, in detail. -- instructions, Advised on education, signs/symptoms to compliance and or monitor and when risk reduct ion. to call clinic and/or visit the nearest ER. Patient verbalized understanding and agreeable with plan. maintain low salt diet, elevate feet above chest level when possible, recommend compression stokings during day. take meds as prescribed., Learning About Low-Carbohydrate Diets material was printed, Learning About the Mediterranean Diet material was printed, Learning About Low-Carbohydrate Foods material was printed, Learning About Low-Carbohydrate Diets material was printed, Learning About the Mediterranean Diet material was printed, Learning About Low-Carbohydrate Foods material was printed, Counting Carbohydrates: Care Instructions material was printed PLAN OF TREATMENT Medication Medication Name Sig Start Date Stop Date Rosuvastatin Calcium 10 MG 1 tablet Orally Once a day for 90 days Omeprazole 40 MG 1 capsule Orally Once a day for 90 days Carvedilol 25 MG 1 tablet Orally twice a day for 90 days Cozaar 100 MG 1 tablet Orally Once a day for 30 day(s) Treatment Notes Assessment Notes Clinical Notes HTN (hypertension) Maintian a low salt DASH diet, exercise, weight loss and decrease stress recommended. Keep BP log and will review next visit. If blood pressure consistently above 140/90 return to clinic for adjustment of meds. Try to quit smoking if you currently smoke. Decrease caffeine intake if possible.--continue on carvedilol 25mg po bid controlled BP-- increase losartan 50 to 100mg daily Hyperlipidemia low fat diet, decrease fast food and fried foods. Increase fruit and vegetable intake. exercise as tolerated 30minutes per day at least 3 days a week. May take fish oil 1000mg twice daily to help increase good cholesterol (HDL). Gastroesophageal reflux disease Gerd- avoid trigger foods without esophagitis including spicy, oily, carbonated drinks, citrus. Do not lay down immediately after eating-wait at least 2 hours, elevate pillow. Eat smaller meals and weight loss recommended for obese patients. Avoid wearing tight clothing. may take TUMs at bedtime. CKD (chronic kidney disease), will monitor kidney stage III function. - Avoid NSAIDs ( such as ibuprofen, motrin, aleive) - Hydrate your kidneys by drinking plenty of water.GFR 50s stable History of follicular lymphoma continue f/u with heme/onc as schedule d routinely for monito ring. Treatment Notes Test Name Order Date Comprehensive Metabolic Panel 2020-04-01 Hemoglobin A1c 2020-04-01 COLLETTE IFA Screen w/Reflex 2020-04-01 Lipid profile 2020-04-01 Immunofixation Electrophoresis 2020-04-01 CBC with Automated Diff 2020-04-01 Next Appt Details 3 Months Reason: Provider Name:Poonam Trammell, 2020-06-02 09:1 5:00 AM, [address], [address], [place], [address], Provider Name:Poonam Trammell, 2020-06-09 09:4 0:00 AM, [address], [address], [place], [address], Insurance Providers Payer Name Payer Payer Insured Name Patient Coverage Covera End Address Phone Relationship to Start Date Kadeem e Insured [employer] [phone] [id number] and [place] [id number] [facility] [id number]
--- NOTE | 2020-04-15 22:51 | ER ---
Nurse's Notes [facility] Name: Hattie Reina Age: 69 yrs Sex: Female : 1950 Arrival Date: 04/15/2020 Time: 22:27 Bed 5 Private MD: Poonam Trammell Diagnosis: Person with feared health complaint in whom no diagnosis is made Presentation: 04/15 22:41 Chief complaint: Patient states: Reports she may have accidentally placed an Anucort ea suppository in her vagina. Coronavirus screen: At this time, the client does not indicate any symptoms associated with coronavirus-19. Ebola Screen: No symptoms or risks identified at this time. Initial Sepsis Screen: Does the patient meet any 2 criteria? No. Patient's initial sepsis screen is negative. Does the patient have a suspected source of infection? No. Patient's initial sepsis screen is negative. Risk Assessment: Do you want to hurt yourself or someone else? Patient reports no desire to harm self or others. Onset of symptoms was April 15, 2020. 22:41 Method Of Arrival: Ambulatory ea 22:41 Acuity: TAE 4 ea Triage Assessment: 22:48 General: Appears in no apparent distress. Behavior is appropriate for age. Pain: Denies ea pain. Neuro: Level of Consciousness is awake, alert, obeys commands, Oriented to person, place, time, situation. Respiratory: Airway is patent Respiratory effort is even, unlabored, Respiratory pattern is regular, symmetrical. Derm: Skin is pink, warm \T\ dry. Historical: - Allergies: 22:50 No Known Allergies; ea - PMHx: 22:50 Hyperlipidemia; Hypertension; LYMPHOMA; shingles; ea - PSHx: 22:50 Tubal ligation; Carpal tunnel; bilateral eye surgery; ea - Immunization history:: Adult Immunizations up to date. - Social history:: Smoking status: Patient denies any tobacco usage or history of. Screenin:44 Abuse screen: Denies threats or abuse. Nutritional screening: No deficits noted. ea Tuberculosis screening: No symptoms or risk factors identified. Fall Risk None identified. Assessment: 22:50 Reassessment: see triage assessment. ea Vital Signs: 22:41 BP 154 / 76; Pulse 66; Resp 18; Temp 97.8; Pulse Ox 100% ; Weight 81.65 kg; Height 5 ea ft. 4 in. (162.56 cm); 22:41 Body Mass Index 30.90 (81.65 kg, 162.56 cm) ea ED Course: 22:27 Patient arrived in ED. am2 22:28 Poonam Trammell MD is Private Physician. am2 22:35 Marlene Larios FNP-C is [facility]. kb 22:35 Remigio Kurtz MD is Attending Physician. kb 22:44 Triage completed. ea 22:45 Arm band placed on right wrist. Patient placed in an exam room, on a stretcher, on ea pulse oximetry. 22:45 Patient has correct armband on for positive identification. Bed in low position. Call ea light in reach. Side rails up X 1. Pulse ox on. NIBP on. 22:51 Assist provider with pelvic exam: Set up pelvic tray. Performed by Marlene GÓMEZ Patient tolerated well. 22:54 Patient did not have IV access during this emergency room visit. ea Administered Medications: No medications were administered Outcome: 22:50 Discharge ordered by . kb 22:54 Discharged to home ambulatory, with family. ea 22:54 Condition: stable 22:54 Discharge instructions given to patient, Instructed on discharge instructions, follow up and referral plans. Demonstrated understanding of instructions, follow-up care. 22:54 Patient left the ED. ea Signatures: Marlene Larios FNP-C FNP-Josi Hernandez am2 Elaine Oreilly, RN RN ena
--- NOTE | 2020-04-15 22:51 | EDPHYS ---
Physician Documentation [facility] Name: Hattie Reina Age: 69 yrs Sex: Female : 1950 Arrival Date: 04/15/2020 Time: 22:27 Bed 5 Private MD: Poonam Trammell ED Physician Remigio Kurtz HPI: 04/15 23:23 This 69 yrs old Female presents to ER via Ambulatory with complaints of kb Foreign body In Vagina. 23:23 The patient presents with may have put suppository in vagina. Onset: The kb symptoms/episode began/occurred just prior to arrival. Modifying factors: The symptoms are alleviated by nothing, the symptoms are aggravated by nothing. Associated signs and symptoms: The patient has no apparent associated signs or symptoms. Severity of symptoms: At their worst the symptoms were very mild, in the emergency department the symptoms are unchanged. The patient has not experienced similar symptoms in the past. The patient has not recently seen a physician. PT reports she was putting a suppository in for hemorrhoids and thinks she may have accidentally put it in her vagina instead. Historical: - Allergies: 22:50 No Known Allergies; ea - PMHx: 22:50 Hyperlipidemia; Hypertension; LYMPHOMA; shingles; ea - PSHx: 22:50 Tubal ligation; Carpal tunnel; bilateral eye surgery; ea - Immunization history:: Adult Immunizations up to date. - Social history:: Smoking status: Patient denies any tobacco usage or history of. ROS: 23:22 Constitutional: Negative for fever, chills, and weight loss, Cardiovascular: Negative kb for chest pain, palpitations, and edema, Respiratory: Negative for shortness of breath, cough, wheezing, and pleuritic chest pain, Abdomen/GI: Negative for abdominal pain, nausea, vomiting, diarrhea, and constipation, MS/Extremity: Negative for injury and deformity, Skin: Negative for injury, rash, and discoloration, Neuro: Negative for headache, weakness, numbness, tingling, and seizure. 23:22 : Positive for possibly put suppository in vagina. Exam: 23:21 Constitutional: This is a well developed, well nourished patient who is awake, alert, kb and in no acute distress. Head/Face: Normocephalic, atraumatic. Abdomen/GI: Soft, non-tender, with normal bowel sounds. No distension or tympany. No guarding or rebound. No evidence of tenderness throughout. Skin: Warm, dry with normal turgor. Normal color with no rashes, no lesions, and no evidence of cellulitis. MS/ Extremity: Pulses equal, no cyanosis. Neurovascular intact. Full, normal range of motion. Neuro: Awake and alert, GCS 15, oriented to person, place, time, and situation. Cranial nerves II-XII grossly intact. Motor strength 5/5 in all extremities. Sensory grossly intact. Cerebellar exam normal. Normal gait. 23:21 Respiratory: the patient does not display signs of respiratory distress, Respirations: normal. 23:21 : Pelvic Exam: External exam: is normal, Speculum exam: normal findings, the nurse was present for the exam. Vital Signs: 22:41 BP 154 / 76; Pulse 66; Resp 18; Temp 97.8; Pulse Ox 100% ; Weight 81.65 kg; Height 5 ea ft. 4 in. (162.56 cm); 22:41 Body Mass Index 30.90 (81.65 kg, 162.56 cm) ea MDM: 22:35 Patient medically screened. kb 23:21 Data reviewed: vital signs, nurses notes. Data interpreted: Pulse oximetry: on room air kb is 100 %. Interpretation: normal. Counseling: I had a detailed discussion with the patient and/or guardian regarding: the historical points, exam findings, and any diagnostic results supporting the discharge/admit diagnosis, the need for outpatient follow up, a family practitioner, to return to the emergency department if symptoms worsen or persist or if there are any questions or concerns that arise at home. Administered Medications: No medications were administered Disposition: 04/16 03:32 Co-signature as Attending Physician, Remigio Kurtz MD. [email or web address] Disposition: 04/15/20 22:50 Discharged to Home. Impression: Person with feared health complaint in whom no diagnosis is made. - Condition is Stable. - Discharge Instructions: Vaginal Foreign Body, [id number]. - Medication Reconciliation Form, Thank You Letter, Antibiotic Education, Prescription Opioid Use form. - Follow up: Emergency Department; When: As needed; Reason: Worsening of condition. Follow up: Private Physician; When: 2 - 3 days; Reason: Recheck today's complaints, Continuance of care, Re-evaluation by your physician. Signatures: Marlene Larios, AMELIAC BORING INSPECTOR-Ckb Elaine Oreilly, RN RN Remigio Eaton MD MD [email or web address] Corrections: (The following items were deleted from the chart) 04/15 22:54 22:50 04/15/2020 22:50 Discharged to Home. Impression: Person with feared health ea complaint in whom no diagnosis is made. Condition is Stable. Forms are Medication Reconciliation Form, Thank You Letter, Antibiotic Education, Prescription Opioid Use. Follow up: Emergency Department; When: As needed; Reason: Worsening of condition. Follow up: Private Physician; When: 2 - 3 days; Reason: Recheck today's complaints, Continuance of care, Re-evaluation by your physician. kb
== END 2020-04-15 22:54 | disposition home or self-care (01) ==
CPT/HCPCS: 99283